=== PATIENT | female | born 1940 | race Caucasian/White ===

== ENCOUNTER 2016-11-06 12:24 | Inpatient (IN) | payer MEDICARE, OTHER ==
[~2016-11-06] VITALS: Ht 157.5 cm; Wt 39.6 kg
[2016-11-06] MEDS ORDERED: ONDANSETRON PF 4 MG/2 ML VIAL. IV PRN ×2 (12:45→14:30)
[2016-11-06] MEDS ORDERED: FENTANYL PF 100 MCG/2 ML VIAL. IV PRN (12:45)
[2016-11-06 12:55] LABS: BASO % 0 % (0-3); EOS % 0 % (0-3); HEMOGLOBIN 16.6 g/dL (12.0-15.5); LYMPH # 0.9 x10^3/uL (1.0-4.8); LYMPH % 7 % (24-48); MEAN CORPUSCULAR HEMOGLOBIN 26 pg (25-35); MEAN CORPUSCULAR HGB CONC 33 g/dL (31-37); MEAN CORPUSCULAR VOLUME 79 fL (79-100); MONO % 4 % (0-9); NEUT % 89 % (31-73); PLATELET COUNT 282 x10^3/uL (140-400); RED BLOOD COUNT 6.37 x10^6/uL (3.50-5.40); RED CELL DISTRIBUTION WIDTH 18.5 % (11.5-14.5); WHITE BLOOD COUNT 13.4 x10^3/uL (4.0-11.0)
[2016-11-06 13:05] LABS: CALCIUM 9.6 mg/dL (8.5-10.1); GFR 53.8
[2016-11-06 13:06] LABS: POTASSIUM 3.3 mmol/L (3.5-5.1)
[2016-11-06 13:11] LABS: TOTAL BILIRUBIN 0.9 mg/dL (0.2-1.0)
--- NOTE | 2016-11-06 13:26 | EKG ---
[facility] [address] [place] [address] Test Date: 2016-11-06 Test Time: 13:17:01 Pat Name: YING MARTINEZ Department: Room: Gender: F Dairy Husbandman: : 1940 Requested By: EDIN SAL Order Number: [id number] Reading MD: Yousuf Canada Measurements Intervals [place] Rate: 120 P: 56 FL: 140 QRS: -64 QRSD: 84 T: 72 QT: 354 QTc: 506 Interpretive Statements SINUS TACHYCARDIA ATRIAL PREMATURE COMPLEX(ES) ABNORMAL LEFT AXIS DEVIATION LOW LIMB LEAD VOLTAGE ABNORMAL ECG LEFT ATRIAL ENLARGEMENT Electronically Signed On 11-07-2016 9:47:39 CDT by Yousuf Canada
[2016-11-06 13:28] LABS: DIRECT BILIRUBIN 0.2 mg/dL (0.0-0.2)
[2016-11-06 13:30] LABS: BILIRUBIN,URINE NEGATIVE (NEG); GLUCOSE,URINE NEGATIVE (NEG); NITRITE,URINE NEGATIVE (NEG); PH,URINE 7.5; PROTEIN,URINE 30 mg/dL (NEG-TRACE)
--- NOTE | 2016-11-06 13:41 | PHYS DOC ---
Past Medical History Past Medical History: COPD, Depression, Hypertension Past Surgical History: Hip Replacement, Knee Replacement Additional Past Surgical Histo: abd surgery, carotid stent Alcohol Use: None Drug Use: None Adult General Chief Complaint Chief Complaint: NAUSEA/VOMITING/DIARRHA HPI HPI 76-year-old female presenting to the emergency department today with nausea vomiting and watery stools for the past 2-3 days. Family also states that she has had polyuria and foul-smelling urine. Yesterday she sustained a mechanical fall and denies hitting her head. She denies loss of consciousness. She has chronic low back pain as well. Review of systems is negative for chest pain shortness of breath. She has had a cough over the past few days with new sputum. She denies fevers or chills. All other review of systems is negative unless otherwise noted in history of present illness. Review of Systems Review of Systems SEE ABOVE. Current Medications Current Medications Current Medications Medications (Trade) Dose Ordered Sig/True Start Time Stop Time Status Last Admin Dose Admin Fentanyl Citrate 25 mcg 25 mcg PRN Q30MIN PRN 11/06/16 12:45 11/06/16 13:35 25 MCG Ondansetron HCl (Zofran) 4 mg PRN Q30MIN PRN 11/06/16 12:45 11/06/16 13:35 4 MG Potassium Chloride (Klor-Con) 40 meq 1X ONCE 11/06/16 14:15 11/06/16 14:16 Sodium Chloride (Iv Sodium Chloride 0.9% 500ml Bag) 500 ml @ 500 mls/hr 1X ONCE 11/06/16 14:15 11/06/16 15:14 11/06/16 13:53 500 MLS/HR Allergies Allergies Allergies Coded Allergies Type Severity Reaction Last Updated Verified No Known Drug Allergies 11/06/16 No Physical Exam Physical Exam Constitutional: Well developed, well nourished, no acute distress, non-toxic appearance. HENT: Normocephalic, atraumatic, bilateral external ears normal, oropharynx moist, no oral exudates, nose normal. [] Eyes: PERRLA, EOMI, conjunctiva normal, no discharge. [] Neck: Normal range of motion, no tenderness, supple, no stridor. Cardiovascular: Tachycardic with a regular rhythm., no murmur [] Lungs & Thorax: Bilateral breath sounds clear to auscultation Abdomen: Bowel sounds normal, soft, no tenderness, no masses, no pulsatile masses. [] Skin: Warm, dry, no erythema, no rash. [] Back: No tenderness, no CVA tenderness. Extremities: No tenderness, no cyanosis, no clubbing, ROM intact, no edema. [] Neurologic: Alert and oriented X 3, normal motor function, normal sensory function, no focal deficits noted. Psychologic: Affect normal, judgement normal, mood normal. [] Current Patient Data Vital Signs Vital Signs Date Time Temp Pulse Resp B/P Pulse Ox O2 Delivery O2 Flow Rate FiO2 11/06/16 13:35 122 18 138/78 95 Room Air 11/06/16 12:24 97.6 97.6 Lab Values Laboratory Tests Test 11/06/16 12:40 11/06/16 13:02 White Blood Count 13.4x10^3/uL (4.0-11.0) H Red Blood Count 6.37x10^6/uL (3.50-5.40) H Hemoglobin 16.6g/dL (12.0-15.5) H Hematocrit 50.0% (36.0-47.0) H Mean Corpuscular Volume 79fL (79-100) Mean Corpuscular Hemoglobin 26pg (25-35) Mean Corpuscular Hemoglobin Concent 33g/dL (31-37) Red Cell Distribution Width 18.5% (11.5-14.5) H Platelet Count 282x10^3/uL (140-400) Neutrophils (%) (Auto) 89% (31-73) H Lymphocytes (%) (Auto) 7% (24-48) L Monocytes (%) (Auto) 4% (0-9) Eosinophils (%) (Auto) 0% (0-3) Basophils (%) (Auto) 0% (0-3) Neutrophils # (Auto) 11.8x10^3uL (1.8-7.7) H Lymphocytes # (Auto) 0.9x10^3/uL (1.0-4.8) L Monocytes # (Auto) 0.6x10^3/uL (0.0-1.1) Eosinophils # (Auto) 0.0x10^3/uL (0.0-0.7) Basophils # (Auto) 0.0x10^3/uL (0.0-0.2) Platelet Estimate Pending Sodium Level 136mmol/L (136-145) Potassium Level 3.3mmol/L (3.5-5.1) L Chloride Level 95mmol/L (98-107) L Carbon Dioxide Level 29mmol/L (21-32) Anion Gap 12 (6-14) Blood Urea Nitrogen 20mg/dL (7-20) Creatinine 1.0mg/dL (0.6-1.0) Estimated GFR (Cockcroft-Gault) 53.8 Glucose Level 145mg/dL (70-99) H Lactic Acid Level 1.8mmol/L (0.4-2.0) Calcium Level 9.6mg/dL (8.5-10.1) Total Bilirubin 0.9mg/dL (0.2-1.0) Direct Bilirubin 0.2mg/dL (0.0-0.2) Aspartate Amino Transferase (AST) 27U/L (15-37) Alanine Aminotransferase (ALT) 24U/L (14-59) Alkaline Phosphatase 113U/L (46-116) Troponin I Quantitative < 0.017ng/mL (0.000-0.055) Total Protein 8.0g/dL (6.4-8.2) Albumin 4.0g/dL (3.4-5.0) Lipase 274U/L (73-393) Urine Collection Type U cath Urine Color Yellow Urine Clarity Clear Urine pH 7.5 Urine Specific [place] 1.020 Urine Protein 30mg/dL (NEG-TRACE) Urine Glucose (UA) Negativemg/dL (NEG) Urine Ketones (Stick) >=80mg/dL (NEG) Urine Blood Moderate (NEG) Urine Nitrite Negative (NEG) Urine Bilirubin Negative (NEG) Urine Urobilinogen Dipstick 1.0mg/dL (0.2 mg/dL) Urine Leukocyte Esterase Negative (NEG) Urine RBC 11-20/HPF (0-2) Urine WBC 1-4/HPF (0-4) Urine Squamous Epithelial Cells Few/LPF Urine Bacteria Moderate/HPF (0-FEW) Urine Hyaline Casts Occasional/HPF Urine Mucus Slight/LPF Laboratory Tests 11/06/16 12:40 Laboratory Tests 4/3/17 12:40 EKG EKG EKG shows sinus rhythm with a tachycardic rate. [place] is normal. Mild prolongation of the QT. ST segments show ST depression in lead V3 V4 and V5. No reciprocal ST elevation is present. Patient denies chest pain or shortness of breath. Her only pain currently is chronic lower back pain near the sacrum. [] Radiology/Procedures Radiology/Procedures [] Course & Med Decision Making Course & Med Decision Making Pertinent Labs and Imaging studies reviewed. (See chart for details) [] 76-year-old female presenting to the emergency department today with nausea vomiting and cough and chronic low back pain. Vital signs showed patient to be tachycardic. EKG shows it to be a sinus tachycardia. EKG shows ST depression in lead V3 V4 and V5. These ST depressions are new when compared to previous on October 06, 2012 which is the most recent EKG available to me at this time. Blood work obtained which shows low potassium. Negative troponin. Elevated white blood cell count. Urinalysis sent. The patient was given IV fluids. IV antibiotics ordered in the emergency department because the patient has dysuria and a cough with tachycardia likely secondary to hypovolemia. She was then admitted to our hospital for further evaluation workup and care. Cardiology consult placed for ST changes. Dragon Disclaimer Dragon Disclaimer This electronic medical record was generated, in whole or in part, using a voice recognition dictation system. Departure Departure Impression: Primary Impression: Sinus tachycardia Additional Impressions: Dysuria Cough ST segment changes on electrocardiography Disposition: ADMITTED INPATIENT Admitting Physician: Fernanda Cope Condition: STABLE Referrals: ALESSIA LIMA (PCP) Problem Qualifiers EDIN SAL MD Nov 06, 2016 13:41
[2016-11-06 13:58] LABS: BACTERIA,URINE MODERATE /HPF (0-FEW); SQUAMOUS EPITHELIAL CELL,UR FEW /LPF
[2016-11-06] MEDS ORDERED: IV NORMAL SALINE 500ML BAG 500 ML IV ONE (14:15)
[2016-11-06] MEDS ORDERED: POTASSIUM CHLORIDE 20 MEQ TABLET.ER. PO ONE ×2 (14:15→18:15)
[2016-11-06 14:21] LABS: ALBUMIN 3.7 g/dL (3.4-5.0); CALCIUM 9.2 mg/dL (8.5-10.1); CREATININE 0.9 mg/dL (0.6-1.0); DIRECT BILIRUBIN 0.2 mg/dL (0.0-0.2); GFR 60.7; TOTAL BILIRUBIN 0.8 mg/dL (0.2-1.0); TOTAL PROTEIN 6.8 g/dL (6.4-8.2)
--- NOTE | 2016-11-06 14:22 | RAD ---
Exam: AP portable chest. History: Cough. Comparison: 10/05/2012. Findings: The heart and mediastinal structures are within normal limits for size. Lungs are without infiltrate. No pneumothorax or pleural effusion is appreciated. Aortic atherosclerosis is present. Cervicothoracic junction demonstrates spinal fusion hardware. Upper lumbar spine demonstrates spinal fusion hardware. Vascular stent is seen in the upper mediastinum. Impression: 1. No acute cardiopulmonary process.
[2016-11-06 14:23] LABS: POTASSIUM 2.9 mmol/L (3.5-5.1)
[2016-11-06] MEDS ORDERED: KETOROLAC 15 MG/ML VIAL. IV PRN (14:30)
[2016-11-06] MEDS ORDERED: CALCIUM CARBONATE 500 MG TAB.CHEW PO PRN (14:30)
[2016-11-06] MEDS ORDERED: IV NORMAL SALINE 1000ML BAG 1,000 ML IV SCH (14:30)
[2016-11-06] MEDS ORDERED: MAGNESIUM HYDROXIDE 2,400 MG/30 ML ORAL.SUSP. PO PRN (14:30)
[2016-11-06] MEDS ORDERED: OXYCODONE IR 5 MG TABLET. PO PRN (14:30)
[2016-11-06] MEDS ORDERED: MAG HYDROX/ALUMINUM HYD/SIMETH 30 ML ORAL.SUSP PO PRN (14:30)
[2016-11-06] MEDS ORDERED: PROCHLORPERAZINE 25 MG SUPP.RECT. PR PRN (14:30)
[2016-11-06] MEDS ORDERED: BISACODYL 10 MG SUPP.RECT. PR PRN (14:30)
[2016-11-06] MEDS ORDERED: NICOTINE 21MG PATCH. TD PRN (14:30)
[2016-11-06] MEDS ORDERED: ACETAMINOPHEN 500 MG TABLET PO PRN (14:30)
[2016-11-06] MEDS ORDERED: CEFTRIAXONE 1GM IVPB FOR OMNI 50 ML IV ONE (14:45)
--- NOTE | 2016-11-06 14:47 | PDOC1 ---
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 Pt has been having 3 day hx of nausea and emesis, no diarrhea, dec PO. NO reported fevers. Did fall at home,. no reported head trauma, unwitnessed but was found by dtr to be seated on the floor, Pt denies headache, no obvious bumps or bruising on head or elsewhere, Labs are remarkable for hemoconcentration with hgb 16, leukocytosis 13, ketonuria but no UTI. CXR done but still pending, dtr does relay some slimy mucousy cough? Pt interestingly has an AbN EKG, but denies any CP, HR was 130s at ER, shot up to 150s? There were reports of polyuria, dysuria, UA is still pending. BS only 145s at ER , not known diabetic HAs not been a big eater per dtr PAst medical; HTN, COPD, Depression, she does cont to smoke, stopped or slowed down 5 weeks ago ALso hx BArretts', hx of "laser sx" at [facility], Bezoars, used to follow with a "Dr. Burger" down at the [facility]. Also gets constant reflux Allergies she claims to dust only Past surgical hx: hysterrectomy, appy, tonsillectomy, hip sx x 2, knee sx Past Medical History GI: GERD Past Surgical History Past Surgical History: Other (see above) Family History Family History: Other (chf in mother) Social History Smoke: <1 pack per day ALCOHOL: none Drugs: None Current Problem List Problem List Problems Medical Problems: (1) Cough Status: Acute (2) Dehydration Status: Acute (3) Dysuria Status: Acute (4) Hypovolemia Status: Acute (5) Sinus tachycardia Status: Acute (6) ST segment changes on electrocardiography Status: Acute Problems: Current Medications Current Medications Current Medications Ondansetron HCl (Zofran) 4 mg PRN Q30MIN PRN IV NAUSEA/VOMITING Last administered on 11/06/16t 13:35; Start 4/3/17 at 12:45 Fentanyl Citrate 25 mcg 25 mcg PRN Q30MIN PRN IV PAIN Last administered on 13:35; Start 11/06/16 at 12:45 Sodium Chloride (Iv Sodium Chloride 0.9% 500ml Bag) 500 ml @ 500 mls/hr 1X ONCE IV Last administered on 11/06/16 13:53; Start 11/06/16 at 14:15; Stop at 15:14 Potassium Chloride 40 meq 40 meq 1X ONCE PO ; Start 11/06/16 at 14:15; Stop 11/06 at 14:16; Status DC Ceftriaxone Sodium (Rocephin 1gm Ivpb For Omni) 50 ml @ 100 mls/hr 1X ONCE IV ; Start 11/06/16 at 14:45; Stop 11/06/16 at 15:14 Allergies Allergies: Coded Allergies: No Known Drug Allergies (Unverified , 11/06/16) ROS General: YES: Other (dec appetite, maybe some weight loss) PSYCHOLOGICAL ROS: No: Anxiety, Behavioral Disorder, Concentration difficultie , Decreased libido, Depression, Disorientation, Hallucinations, Hostility, Irritablity, Memory difficulties, Mood Swings, Obsessive thoughts, Other, Physical abuse, Sexual abuse, Sleep disturbances, Suicidal ideation Eyes: No Blurry vision, No Decreased vision, No Double vision, No Dry eyes, No Excessive tearing, No Eye Pain, No Itchy Eyes, No Loss of vision, No Other, No Photophobia, No Scotomata, No Uses contacts, No Uses glasses HEENT: No: Epistaxis, Heacaches, Hearing change, Nasal congestion, Nasal discharge, Oral lesions, Other, Sinus pain, Sneezing, Snoring, Sore Throat, Tinnitus, Vertigo, Visual Changes, Vocal changes ALLERGY AND IMMUNOLOGY: No: Hives, Insect Bite Sensitivity, Itchy/Watery Eyes, Nasal Congestion, Other, Post Nasal Drip, Seasonal Allergies Hematological and Lymphatic: No: Bleeding Problems, Blood Clots, Blood Transfusions, Brusing, Night Sweats, Other, Pallor, Swollen Lymph Nodes ENDOCRINE: No: Breast Changes, Galactorrhea, Hair Pattern Changes, Hot Flashes , Malaise/lethargy, Mood Swings, Other, Palpitations, Polydipsia/polyuria, Skin Changes, Temperature Intolerance, Unexpected Weight Changes Breast: No New/Changing Breast Lumps, No Nipple changes, No Nipple discharge, No Other Respiratory: YES: Cough Cardiovascular: No Chest Pain, No Edema, No Lt Headedness, No Orthopnea, No Other, No Palpitations, No Paroxysmal Noc. Dyspnea Gastrointestinal: Yes Nausea, Yes Vomiting Genitourinary: No , No , No , No , No , No , No , No Discharge, No Dysuria, No Flank Pain, No Frequency, No Hematuria, No Incontinence, No Other, No Pain, No Retention, No Urgency Musculoskeletal: No Gait Disturbance, No Joint Pain, No Joint Stiffness, No Joint Swelling, No Muscle Pain, No Muscular Weakness, No Other, No Pain In:, No Swelling In: Neurological: No Behavorial Changes, No Bowel/Bladder ControlChng, No Confusion , No Dizziness, No Gait Disturbance, No Headaches, No Impaired Coord/balance, No Memory Loss, No Numbness/Tingling, No Other, No Seizures, No Speech Problems , No Tremors, No Visual Changes, No Weakness Skin: Yes Dry Skin Physical Exam General: Alert, Oriented X3, Cooperative, No acute distress, Other (dry skin, skin and bones) HEENT: PERRLA Lungs: Clear to auscultation, Normal air movement Heart: S1S2, RRR, no thrills, no rubs, no gallops Cardiovascular: S1, S2 Breasts: Normal Abdomen: Soft, Other (scaphoid) Rectal Exam: not examined Extremities: No clubbing, No cyanosis, No edema, Normal pulses, No tenderness/ swelling Skin: No rashes, No breakdown, No significant lesion Neuro: Normal gait, Normal speech, Strength at 5/5 X4 ext, Normal tone, Sensation intact, Cranial nerves 3-12 NL, Reflexes 2+ Psych/Mental Status: Mental status NL, Mood NL Vitals Vitals Vital Signs Date Time Temp Pulse Resp B/P Pulse Ox O2 Delivery O2 Flow Rate FiO2 11/06/16 13:35 122 18 138/78 95 Room Air 11/06/16 12:24 97.6 97.6 Labs Labs Laboratory Tests Test 11/06/16 12:40 11/06/16 13:02 11/06/16 13:30 White Blood Count 13.4x10^3/uL (4.0-11.0) Red Blood Count 6.37x10^6/uL (3.50-5.40) Hemoglobin 16.6g/dL (12.0-15.5) Hematocrit 50.0% (36.0-47.0) Mean Corpuscular Volume 79fL (79-100) Mean Corpuscular Hemoglobin 26pg (25-35) Mean Corpuscular Hemoglobin Concent 33g/dL (31-37) Red Cell Distribution Width 18.5% (11.5-14.5) Platelet Count 282x10^3/uL (140-400) Neutrophils (%) (Auto) 89% (31-73) Lymphocytes (%) (Auto) 7% (24-48) Monocytes (%) (Auto) 4% (0-9) Eosinophils (%) (Auto) 0% (0-3) Basophils (%) (Auto) 0% (0-3) Neutrophils # (Auto) 11.8x10^3uL (1.8-7.7) Lymphocytes # (Auto) 0.9x10^3/uL (1.0-4.8) Monocytes # (Auto) 0.6x10^3/uL (0.0-1.1) Eosinophils # (Auto) 0.0x10^3/uL (0.0-0.7) Basophils # (Auto) 0.0x10^3/uL (0.0-0.2) Sodium Level 136mmol/L (136-145) 139mmol/L (136-145) Potassium Level 3.3mmol/L (3.5-5.1) 2.9mmol/L (3.5-5.1) Chloride Level 95mmol/L (98-107) 97mmol/L (98-107) Carbon Dioxide Level 29mmol/L (21-32) 29mmol/L (21-32) Anion Gap 12 (6-14) 13 (6-14) Blood Urea Nitrogen 20mg/dL (7-20) 20mg/dL (7-20) Creatinine 1.0mg/dL (0.6-1.0) 0.9mg/dL (0.6-1.0) Estimated GFR (Cockcroft-Gault) 53.8 60.7 Glucose Level 145mg/dL (70-99) 140mg/dL (70-99) Lactic Acid Level 1.8mmol/L (0.4-2.0) Calcium Level 9.6mg/dL (8.5-10.1) 9.2mg/dL (8.5-10.1) Total Bilirubin 0.9mg/dL (0.2-1.0) 0.8mg/dL (0.2-1.0) Direct Bilirubin 0.2mg/dL (0.0-0.2) 0.2mg/dL (0.0-0.2) Aspartate Amino Transf (AST/SGOT) 27U/L (15-37) 20U/L (15-37) Alanine Aminotransferase (ALT/SGPT) 24U/L (14-59) 23U/L (14-59) Alkaline Phosphatase 113U/L (46-116) 102U/L (46-116) Troponin I Quantitative < 0.017ng/mL (0.000-0.055) Total Protein 8.0g/dL (6.4-8.2) 6.8g/dL (6.4-8.2) Albumin 4.0g/dL (3.4-5.0) 3.7g/dL (3.4-5.0) Lipase 274U/L (73-393) 257U/L (73-393) Urine Collection Type U cath Urine Color Yellow Urine Clarity Clear Urine pH 7.5 Urine Specific [place] 1.020 Urine Protein 30mg/dL (NEG-TRACE) Urine Glucose (UA) Negativemg/dL (NEG) Urine Ketones (Stick) >=80mg/dL (NEG) Urine Blood Moderate (NEG) Urine Nitrite Negative (NEG) Urine Bilirubin Negative (NEG) Urine Urobilinogen Dipstick 1.0mg/dL (0.2 mg/dL) Urine Leukocyte Esterase Negative (NEG) Urine RBC 11-20/HPF (0-2) Urine WBC 1-4/HPF (0-4) Urine Squamous Epithelial Cells Few/LPF Urine Bacteria Moderate/HPF (0-FEW) Urine Hyaline Casts Occasional/HPF Urine Mucus Slight/LPF Laboratory Tests Test 11/06/16 12:40 11/06/16 13:02 11/06/16 13:30 White Blood Count 13.4x10^3/uL (4.0-11.0) Red Blood Count 6.37x10^6/uL (3.50-5.40) Hemoglobin 16.6g/dL (12.0-15.5) Hematocrit 50.0% (36.0-47.0) Mean Corpuscular Volume 79fL (79-100) Mean Corpuscular Hemoglobin 26pg (25-35) Mean Corpuscular Hemoglobin Concent 33g/dL (31-37) Red Cell Distribution Width 18.5% (11.5-14.5) Platelet Count 282x10^3/uL (140-400) Neutrophils (%) (Auto) 89% (31-73) Lymphocytes (%) (Auto) 7% (24-48) Monocytes (%) (Auto) 4% (0-9) Eosinophils (%) (Auto) 0% (0-3) Basophils (%) (Auto) 0% (0-3) Neutrophils # (Auto) 11.8x10^3uL (1.8-7.7) Lymphocytes # (Auto) 0.9x10^3/uL (1.0-4.8) Monocytes # (Auto) 0.6x10^3/uL (0.0-1.1) Eosinophils # (Auto) 0.0x10^3/uL (0.0-0.7) Basophils # (Auto) 0.0x10^3/uL (0.0-0.2) Sodium Level 136mmol/L (136-145) 139mmol/L (136-145) Potassium Level 3.3mmol/L (3.5-5.1) 2.9mmol/L (3.5-5.1) Chloride Level 95mmol/L (98-107) 97mmol/L (98-107) Carbon Dioxide Level 29mmol/L (21-32) 29mmol/L (21-32) Anion Gap 12 (6-14) 13 (6-14) Blood Urea Nitrogen 20mg/dL (7-20) 20mg/dL (7-20) Creatinine 1.0mg/dL (0.6-1.0) 0.9mg/dL (0.6-1.0) Estimated GFR (Cockcroft-Gault) 53.8 60.7 Glucose Level 145mg/dL (70-99) 140mg/dL (70-99) Lactic Acid Level 1.8mmol/L (0.4-2.0) Calcium Level 9.6mg/dL (8.5-10.1) 9.2mg/dL (8.5-10.1) Total Bilirubin 0.9mg/dL (0.2-1.0) 0.8mg/dL (0.2-1.0) Direct Bilirubin 0.2mg/dL (0.0-0.2) 0.2mg/dL (0.0-0.2) Aspartate Amino Transf (AST/SGOT) 27U/L (15-37) 20U/L (15-37) Alanine Aminotransferase (ALT/SGPT) 24U/L (14-59) 23U/L (14-59) Alkaline Phosphatase 113U/L (46-116) 102U/L (46-116) Troponin I Quantitative < 0.017ng/mL (0.000-0.055) Total Protein 8.0g/dL (6.4-8.2) 6.8g/dL (6.4-8.2) Albumin 4.0g/dL (3.4-5.0) 3.7g/dL (3.4-5.0) Lipase 274U/L (73-393) 257U/L (73-393) Urine Collection Type U cath Urine Color Yellow Urine Clarity Clear Urine pH 7.5 Urine Specific [place] 1.020 Urine Protein 30mg/dL (NEG-TRACE) Urine Glucose (UA) Negativemg/dL (NEG) Urine Ketones (Stick) >=80mg/dL (NEG) Urine Blood Moderate (NEG) Urine Nitrite Negative (NEG) Urine Bilirubin Negative (NEG) Urine Urobilinogen Dipstick 1.0mg/dL (0.2 mg/dL) Urine Leukocyte Esterase Negative (NEG) Urine RBC 11-20/HPF (0-2) Urine WBC 1-4/HPF (0-4) Urine Squamous Epithelial Cells Few/LPF Urine Bacteria Moderate/HPF (0-FEW) Urine Hyaline Casts Occasional/HPF Urine Mucus Slight/LPF VTE Prophylaxis Ordered VTE Prophylaxis Devices: Yes VTE Pharmacological Prophylaxi: Yes Assessment/Plan Assessment/Plan 1. Nausea, emesis, dehydration 2. Hemoconcentration sec to dehydration 3. Leukocytosis, likely reactive 4. smoker, hx COPD, HTN, depression per documentation 5. Hypokalemia 6. MOd to severe PCM 7. Hx rolle's, bezoars, chronic GERD 8. DIANA, vasomotor sec to above PLAn: LAbs and hx support dx dehydration (hemoconcentration, ketonuria, nausea, emesis ) AGGRESSIvE IVF, 125 cc hr for now Might be able to dec rate after 24-48 hrs Admit 2MN, CVC floor given concerning EKG, consult cards Await CXR results Awaiting home meds Nutrition consult for seveer PCM and dec PO DVT prophy 30 sQ qdaily only PPI daily PT/OT Nicotine patch prn Recheck labs freida Will start antibiotic when CXR shows infectious process dw ER MD, pt and dtr GEORGETTE POON MD Nov 06, 2016 14:47
[2016-11-06] MEDS: PROCHLORPERAZINE 10 MG/2 ML VIAL. IV PRN (16:11)
[2016-11-06 16:17] LABS: PLT ESTIMATE ADEQUATE (ADEQUATE); POLYCHROMASIA SLIGHT
[2016-11-06 16:18] LABS: ANISOCYTOSIS SLIGHT; OVALOCYTES OCC
--- NOTE | 2016-11-06 16:30 | ACF ---
Admission Forms Criteria CARDIOLOGY GRG Clinical Indications for Admission to Inpatient Care ( Place 'X' for any and all applicable criteria): Hospital admission is needed for appropriate care of the patient because of ANY ONE of the following (1): [ ] I. Hemodynamic instability as indicated by ALL of the following (1)(2)(3) (4)(5) [ ]a) Vital signs or other findings not as expected for chronic patient condition or baseline [ ]b) Instability indicated by ANY ONE of the following: [ ]i) Hypotension [ ]ii) Symptomatic Tachycardia unresponsive to treatment ( e.g., analgesia, fluids, sedation as indicated) [ ]iii) Inadequate perfusion indicated by ANY ONE of the following: [ ] 1) Lactic acidosis (> 2 mmol/L) [ ] 2) New abnormal capillary refill (> 3 seconds) [ ] 3) Reduced urine output [ ] 4) New altered mental status [ ]iv) Orthostatic vital sign changes unresponsive to treatment (e.g., fluids) [ ]v) IV inotropic or vasopressor medication required to maintain adequate blood pressure or perfusion [ ] II. Severe heart failure as indicated by ANY ONE of the following(17)(18) [ ]a) Respiratory distress [ ]b) Hypotension [ ]c) Anasarca (refractory to outpatient therapy) [ ]d) Cardiac arrhythmias of immediate concern [ ]e) Myocardial ischemia [ ] III. Cardiac arrhythmias or findings of immediate concern indicated by ANY ONE of the following (19)(20): [ ] a) Heart rhythms that are inherently dangerous or unstable indicated by ANY ONE of the following (21)(22)(23): [ ] i) Resuscitated ventricular fibrillation or cardiac arrest [ ] ii) Ventricular escape rhythm [ ] iii) Sustained ventricular tachycardia (30 seconds or more of ventricular rhythm at greater than 100 beats per minute) [ ] iv) Nonsustained ventricular tachycardia and ANY ONE of the following: [ ] 1) Suspected cardiac ischemia as cause or consequence of ventricular tachycardia [ ] 2) In setting of acute myocarditis [ ] b) Unstable cardiac conduction defects indicated by ANY ONE of the following(23)(24)(25) [ ] i) Type II second-degree atrioventricular block [ ]ii) Third-degree atrioventricular block [ ]iii) New-onset left bundle branch block with suspected myocardial ischemia [ ]c) Any heart rhythm and ANY ONE of the following (21)(22)(26)(27) (28) [ ] i) Continuous long-term ECG monitoring needed (e.g., initiation of drug requiring monitoring for more than 24 hours) [ ] ii) Patient has automatic implanted cardioverter defibrillator that is repeatedly firing, malfunctioning, or in need of immediate adjustment of settings beyond the scope of ambulatory or observation care [ ]d) Heart rhythms of concern due to ANY ONE of the following: [ ] i) Hypotension [ ] ii) Respiratory distress [ ] iii) Association with other significant symptoms (e.g., bradycardia with syncope or ongoing dizziness, supraventricular tachycardia with chest pain (14)(15)(17) [ ] IV. Monitoring for cardiac contusion beyond the scope of observation care needed [A](30)(31)(32) [ ] V. Surgical or device complication (e.g., valve replacement complication , pacemaker dysfunction) (35)(41)(44)(45)(46) [ ] . Inpatient palliative care needed. [B](49) Also use Inpatient Palliative Care Criteria [ ] VII. Nonbacterial thrombotic (marantic) endocarditis (36)(43)(47)(48) [X] VIII. Cardiology condition, symptom, or finding for which emergency and observation care has failed or are not considered appropriate. [ ] IX. Acute valvular disease requiring inpatient as indicated by ANY ONE of the following (41) [ ]a) Acute valvular regurgitation (42) [ ]b) Noninfectious valvulitis (43) [ ]c) Obstructive valve thrombosis [ ]d) Paravalvular leak [ ]e) Other significant valvular disorder remaining after emergency or observation level of care (as appropriate) [ ]X. Pericardial disease requiring inpatient treatment as indicated by ANY ONE of the following (33)(34)(35)(36)(37) [ ]a) Suspected tamponade (38)(39)(40) [ ]b) Hemopericardium [ ]c) Other significant pericardial disorder remaining after emergency or observation level of care (as appropriate) [ ] XI. Cardiac ischemia beyond scope of emergency and observation care. [ ] XII. Hypertension requiring inpatient treatment as indicated by ANY ONE of the following (6)(7)(8) [ ]a) SBP greater than 220 mm Hg or DBP greater than 120 mmHg despite treatment [ ]b) SBP greater than 140 mm Hg or DBP greater than 100 mm Hg with evidence of acute end organ damage as indicated by ANY ONE of the following [ ] i) Encephalopathy [ ] ii) Acute renal failure as indicated by new onset of ANY ONE of the following (9)(10)(11)(12)(13) [ ]1) 3-fold rise in serum creatinine from baseline [ ]2) Serum creatinine greater than 4 mg/dL ( 354 micromoles/L) with acute rise greater than 0.5 mg/dL (44.2 micromoles/L) [ ]3) Reduction of more than 75% in estimated glomerular filtration rate from baseline [ ]4) Estimated glomerular filtration rate less than 35 mL/min/1.73m2 (0.59 mL/sec/1.73m2) in child up to 18 years of age [ ]5) Cessation of urine output indicated by ALL of the following [ ]A. Adequate volume status [ ]B. Inadequate urine output as indicated by ANY ONE of the following [ ]a. Urine output less than 0.3 mL/kg/hr for 24 hours [ ]b. Anuria (urine output less than 0.1 mL/kg/hr) for 12 hours [ ] iii) Aortic dissection [ ] iv) Myocardial Ischemia [ ] v) Left ventricular heart failure [ ]vi) Retinal Hemorrhage [ ]vii) Other significant finding [ ]c) Hypertension in child requiring inpatient treatment as indicated by ALL of the following(14)(15)(16) [ ] i) Outpatient treatment not effective, not available, or not appropriate [ ]ii) SBP or DBP greater than 95th percentile for age [ ]iii) Evidence of acute end organ damage as indicated by ANY ONE of the following [ ]1) Altered mental status [ ]2) Acute renal failure as indicated by new onset of ANY ONE of the following(9)(10)(11)(12)(13) [ ]A. 3-fold rise in serum creatinine from baseline [ ]B. Serum creatinine greater than 4 mg/dL (354 micromoles/L) with acute rise greater than 0.5 mg/dL (44.2 micromoles/L) [ ]C. Reduction of more than 75% in estimated glomerular filtration rate from baseline [ ]D. Estimated glomerular filtration rate less than 35 mL/min/1.73m2 (0.59 mL/sec/1.73m2) in child up to 18 years of age [ ]E. Cessation of urine output indicated by ALL of the following [ ]a. Adequate volume status [ ]b. Inadequate urine output as indicated by ANY ONE of the following [ ]i) Urine output less than 0.3 mL/kg/hr for 24 hours [ ]ii) Anuria ( urine output less than 0.1 mL/kg/hr) for 12 hours [ ]3) Severe headache [ ]4) Visual disturbance [ ]5) Retinal hemorrhage [ ]6) Other significant finding [ ]XIII. Complications of transplanted heart indicated by ANY ONE of the following(61): [ ]a) Acute graft rejection requiring inpatient management (eg, intravenous immunosuppression)(62)(63) [ ]b) Acute graft heart failure indicated by ANY ONE of the following(64): [ ]i) Hemodynamic instability [ ]ii) Cardiac arrhythmias of immediate concern [ ]iii) Pulmonary edema that is very severe (eg, mechanical ventilation needed, imminent or likely, need for 100% oxygen to keep oxygen saturation above 90%) [ ]iv) Pulmonary edema that is persistent as indicated by ALL of the following: [ ]1) New need for oxygen therapy to keep oxygen saturation above 90% (or increased FiO2 need from baseline) [ ]2) Has not improved sufficiently with emergency department or observation care IV diuretics or other heart failure treatments[E] [ ]v) Altered mental status that is severe or persistent [ ]vi) Increased creatinine (new on laboratory test) with reduction of more than 50% in estimated glomerular filtration rate from baseline [ ]vii) Progressively (ongoing) rising creatinine (known from past laboratory test) with reduction of more than 25% in estimated glomerular filtration rate from baseline [ ]viii) Acute renal failure [ ]ix) Acute peripheral ischemia (eg, examination shows pulseless, cool, mottled, or cyanotic extremity) [ ]x) Pulmonary artery catheter monitoring needed [ ]xi) Other sign or symptom of heart failure requiring inpatient treatment (ie, too severe or not responsive to outpatient and observation care treatment) [ ]c) Infection requiring inpatient management (eg, Hemodynamic instability, need for intravenous antimicrobial treatment)(66)(67)(68)(69)(70) [ ]d) Cardiac allograft vasculopathy requiring inpatient management ( eg evidence of cardiac ischemia)(71) [ ]e) Other complication of transplanted heart (eg, stroke, severe pulmonary hypertension, severe valvular dysfunction) requiring inpatient management(72) The original [facility] content created by [facility] has been revised. The portions of the content which have been revised are identified through the use of italic text or in bold, and [facility] has neither reviewed nor approved the modified material. All other unmodified content is copyright [facility]. Please see references footnoted in the original [facility] edition 2016 Admission Criteria Met?: Yes YUMIKO BARRON Nov 06, 2016 16:30
[2016-11-06 19:30] VITALS: BP 181/118
[2016-11-06] MEDS ORDERED: LABETALOL 20 MG/4 ML DISP.SYRIN. IVP PRN (20:00)
[2016-11-06] MEDS ORDERED: CETI10TA22 PO (20:49)
[2016-11-06] MEDS ORDERED: OMEP10CA3 PO ×2 (20:49)
[2016-11-06] MEDS ORDERED: MORP15TA3 PO (20:49)
[2016-11-06] MEDS ORDERED: PARO40TA3 PO (20:49)
[2016-11-06] MEDS ORDERED: TRAZ100T12 PO (20:49)
[2016-11-06] MEDS ORDERED: CALC200T36 PO (20:49)
[2016-11-06] MEDS ORDERED: OXYB5TAB7 PO (20:49)
[2016-11-06] MEDS ORDERED: METO25TA4 PO (20:49)
[2016-11-06] MEDS ORDERED: POTA10CA PO (20:49)
[2016-11-06] MEDS ORDERED: HYDR-2666 PO (20:49)
[2016-11-06] MEDS ORDERED: AMLO10TA2 PO (20:49)
[2016-11-06] MEDS ORDERED: LATA2.5D3 EACHEYE (20:55)
[2016-11-06] MEDS ORDERED: CYCL1DRO EACHEYE (20:55)
[2016-11-06] MEDS ORDERED: ONDA4TAB7 PO (20:55)
[2016-11-06] MEDS ORDERED: VITA150T PO (20:55)
[2016-11-06] MEDS ORDERED: HYDROCODONE/APAP 5/325MG TABLET. PO PRN (21:00)
[2016-11-06] MEDS ORDERED: ONDANSETRON ODT 4 MG TAB.RAPDIS. PO PRN (21:15)
[2016-11-06] MEDS ORDERED: traZODone 50 MG TABLET. PO PRN (22:15)
[2016-11-06] MEDS: ENOXAPARIN 30 MG/0.3 ML SYRINGE. SQ SCH (22:22)
[2016-11-06] MEDS: OXYBUTYNIN CHLORIDE 5 MG TABLET PO SCH (22:25)
[2016-11-06] MEDS: MORPHINE ER 15 MG TABLET.ER PO SCH (22:25)
[2016-11-06] MEDS: DOCUSATE SODIUM 100 MG CAPSULE. PO SCH (22:25)
[2016-11-06] MEDS: LATANOPROST 0.005% OPHTH SOLUTION 2.5ML BOTTLE. OU SCH (22:26)
[2016-11-06] MEDS: CYCLOSPORINE 0.05% OPTH DROPERETTE. OU SCH (22:26)
[2016-11-06] MEDS: IV NORMAL SALINE 1000ML BAG 1,000 ML IV PRN (22:27)
[2016-11-06] MEDS: METOPROLOL TART IMMED RELEASE 25 MG TABLET. PO SCH (22:27)
[2016-11-06 23:25] VITALS: BP_SYST 152; BP_SYST 179; BP_DIAS 80; BP_DIAS 93
[2016-11-07] VITALS (7 sets, daily range): BP systolic 105–156; BP diastolic 58–91
[2016-11-07 05:08] LABS: BASO % 0 % (0-3); EOS % 0 % (0-3); HEMATOCRIT 40.5 % (36.0-47.0); HEMOGLOBIN 13.2 g/dL (12.0-15.5); LYMPH # 0.5 x10^3/uL (1.0-4.8); LYMPH % 4 % (24-48); MEAN CORPUSCULAR HEMOGLOBIN 26 pg (25-35); MEAN CORPUSCULAR HGB CONC 33 g/dL (31-37); MEAN CORPUSCULAR VOLUME 78 fL (79-100); MONO % 4 % (0-9); NEUT % 92 % (31-73); PLATELET COUNT 220 x10^3/uL (140-400); RED BLOOD COUNT 5.19 x10^6/uL (3.50-5.40); RED CELL DISTRIBUTION WIDTH 18.3 % (11.5-14.5); WHITE BLOOD COUNT 14.3 x10^3/uL (4.0-11.0)
[2016-11-07 05:31] LABS: CALCIUM 7.7 mg/dL (8.5-10.1); CREATININE 0.7 mg/dL (0.6-1.0); GFR 81.1; POTASSIUM 3.5 mmol/L (3.5-5.1)
[2016-11-07] MEDS: IV NORMAL SALINE 1000ML BAG 1,000 ML IV PRN (07:01)
[2016-11-07] MEDS: VITAMIN B COMPLEX TABLET. PO SCH (08:42)
[2016-11-07] MEDS: LATANOPROST 0.005% OPHTH SOLUTION 2.5ML BOTTLE. OU SCH (08:42)
[2016-11-07] MEDS: CYCLOSPORINE 0.05% OPTH DROPERETTE. OU SCH ×2 (08:42→20:59)
[2016-11-07] MEDS: PAROXETINE 20 MG TABLET. PO SCH (08:42)
[2016-11-07] MEDS: OXYBUTYNIN CHLORIDE 5 MG TABLET PO SCH ×2 (08:42→20:56)
[2016-11-07] MEDS: AMLODIPINE BESYLATE 10 MG TABLET. PO SCH (08:43)
[2016-11-07] MEDS: POTASSIUM CHLORIDE 20 MEQ TABLET.ER. PO SCH ×3 (08:43→17:44)
[2016-11-07] MEDS: PANTOPRAZOLE 40 MG TABLET.DR. PO SCH (08:43)
[2016-11-07] MEDS: DOCUSATE SODIUM 100 MG CAPSULE. PO SCH ×2 (08:44→20:56)
[2016-11-07] MEDS: METOPROLOL TART IMMED RELEASE 25 MG TABLET. PO SCH ×2 (08:44→20:56)
[2016-11-07] MEDS: MORPHINE SULFATE 2 MG/ML DISP.SYRIN. IV PRN (08:47)
--- NOTE | 2016-11-07 09:27 | PDOC2 ---
CLARISA PANTOJA [employer] 11/07/16 0927: CARDIAC CONSULT DATE OF CONSULT Date of Consult DATE: 11/07/16 TIME: 09:23 REASON FOR CONSULT Reason for Consult: ST changes REFERRING PHYSICIAN Referring Physician: Paz SOURCE Source: Chart review, Patient HISTORY OF PRESENT ILLNESS HISTORY OF PRESENT ILLNESS This is a pleasant 76 yo female admitted for complains of vomiting and diarrhea. She reports that she lives with her daughter and starting Sunday, she started having bouts of nausea which then progressed to vomiting. Initially she was feeling constipated then it became diarrhea. In addition she did fall yesterday but no injuries sustained and no lost of consciousness. She is somewhat a poor historian and family not available for further details. Accdg to ED she also was noted with fould smelling urine. Denies any symptoms of palpitations, chest pain, SOA. Denies any prior VTE, CAD. No fever or chills. She does blame it for possible stomach flu as she explained to me this has been going around. PAST MEDICAL HISTORY Cardiovascular: HTN, Other (carotid artery disease) Pulmonary: COPD CENTRAL NERVOUS SYSTEM: Other (No pertinent history) GI: GERD (barrets) Heme/Onc: No pertinent hx Hepatobiliary: No pertinent hx Psych: Anxiety, Depression Musculoskeletal: Osteoarthritis ENT: Allergic Rhinitis, Other (glaucoma, dry eye syndrome) Renal/: No pertinent hx Dermatology: No pertinent hx PAST SURGICAL HISTORY Past Surgical History: Appendectomy, Tonsillectomy, Hysterectomy, Other (knee and hip surgery; cervical fusion) FAMILY HISTORY Family History: Heart Disease (mother) SOCIAL HISTORY Smoke: 1 pack per day (>40 yrs) ALCOHOL: none Drugs: None Lives: with Family CURRENT MEDICATIONS CURRENT MEDICATIONS Current Medications Medications (Trade) Dose Ordered Sig/True Route PRN Reason Start Time Stop Time Status Last Admin Dose Admin Ondansetron HCl (Zofran) 4 mg PRN Q30MIN PRN IV NAUSEA/VOMITING 11/06/16 12:45 11/06/16 13:35 Fentanyl Citrate 25 mcg 25 mcg PRN Q30MIN PRN IV PAIN 11/06/16 12:45 11/06/16 13:35 Sodium Chloride (Iv Sodium Chloride 0.9% 500ml Bag) 500 ml @ 500 mls/hr 1X ONCE IV 11/06/16 14:15 11/06/16 15:14 DC 11/06/16 13:53 Potassium Chloride 40 meq 40 meq 1X ONCE PO 11/06/16 14:15 11/06/16 14:16 DC 11/06/16 18:31 Ceftriaxone Sodium (Rocephin 1gm Ivpb For Omni) 50 ml @ 100 mls/hr 1X ONCE IV 11/06/16 14:45 11/06/16 15:14 DC 11/06/16 14:45 Prochlorperazine Edisylate (Compazine) 10 mg PRN Q6HRS PRN IV NAUSEA/VOMITING 11/06/16 14:30 11/06/16 16:11 Docusate Sodium (Colace) 100 mg BID PO 11/06/16 21:00 11/07/16 08:44 Enoxaparin Sodium 30 mg 30 mg Q24H SQ 11/06/16 21:00 11/06/16 22:22 Sodium Chloride 1,000 ml @ 125 mls/hr CONT IV 11/06/16 14:30 11/06/16 16:01 DC 11/06/16 15:56 Sodium Chloride (Iv Sodium Chloride 0.9% 1000ml Bag) 1,000 ml @ 125 mls/hr CONT PRN IV . 11/06/16 16:01 11/07/16 07:01 Potassium Chloride (Klor-Con) 40 meq 1X ONCE PO 11/06/16 18:15 11/06/16 18:16 DC 11/06/16 18:31 Metoprolol Tartrate (Lopressor) 25 mg BID PO 11/06/16 21:00 11/07/16 08:44 Amlodipine Besylate (Norvasc) 10 mg DAILY PO 11/07/16 09:00 11/07/16 08:43 Cyclosporine (Restasis) 1 drop BID OU 11/06/16 21:00 11/07/16 08:42 Latanoprost (Xalatan) 1 drop QHS OU 11/06/16 22:00 11/07/16 08:42 Morphine Sulfate (Ms Contin) 15 mg BID PO 11/06/16 22:00 11/06/16 22:25 Oxybutynin Chloride (Ditropan) 5 mg BID PO 11/06/16 22:00 11/07/16 08:42 Pantoprazole Sodium (Protonix) 40 mg DAILYAC PO 11/07/16 07:30 11/07/16 08:43 Paroxetine HCl (Paxil) 40 mg DAILY PO 11/07/16 09:00 11/07/16 08:42 Potassium Chloride (Klor-Con) 20 meq TIDWMEALS PO 11/07/16 08:00 11/07/16 08:43 Vitamin B Complex (Isidro B) 1 tab DAILY PO 11/07/16 09:00 11/07/16 08:42 ALLERGIES ALLERGIES: Coded Allergies: No Known Drug Allergies (Unverified , 11/06/16) ROS Review of System 14 point ROS evaluated with pertinent positives noted per HPI PHYSICAL EXAM General: Alert, Oriented X3, Cooperative, No acute distress HEENT: Atraumatic, Mucous membr. moist/pink Lungs: Clear to auscultation, Normal air movement Heart: Regular rate, Normal S1, Normal S2, Other (2/6 systolic murmur to LLS border) Abdomen: Soft (with diffuse mild tenderness with palpation) Extremities: No cyanosis, No edema Skin: No breakdown, No significant lesion Neuro: Normal speech, Sensation intact Psych/Mental Status: Mood NL MUSCULOSKELETAL: Osteoarthritic changes both hands VITALS VITALS Vital Signs Date Time Temp Pulse Resp B/P Pulse Ox O2 Delivery O2 Flow Rate FiO2 11/07/16 08:44 78 119/71 11/07/16 07:27 97.8 20 96 Room Air 97.8 LABS Lab: Laboratory Tests Test 11/06/16 12:40 11/06/16 13:02 11/06/16 13:30 11/07/16 04:10 White Blood Count 13.4x10^3/uL (4.0-11.0) 14.3x10^3/uL (4.0-11.0) Red Blood Count 6.37x10^6/uL (3.50-5.40) 5.19x10^6/uL (3.50-5.40) Hemoglobin 16.6g/dL (12.0-15.5) 13.2g/dL (12.0-15.5) Hematocrit 50.0% (36.0-47.0) 40.5% (36.0-47.0) Mean Corpuscular Volume 79fL (79-100) 78fL (79-100) Mean Corpuscular Hemoglobin 26pg (25-35) 26pg (25-35) Mean Corpuscular Hemoglobin Concent 33g/dL (31-37) 33g/dL (31-37) Red Cell Distribution Width 18.5% (11.5-14.5) 18.3% (11.5-14.5) Platelet Count 282x10^3/uL (140-400) 220x10^3/uL (140-400) Neutrophils (%) (Auto) 89% (31-73) 92% (31-73) Lymphocytes (%) (Auto) 7% (24-48) 4% (24-48) Monocytes (%) (Auto) 4% (0-9) 4% (0-9) Eosinophils (%) (Auto) 0% (0-3) 0% (0-3) Basophils (%) (Auto) 0% (0-3) 0% (0-3) Neutrophils # (Auto) 11.8x10^3uL (1.8-7.7) 13.1x10^3uL (1.8-7.7) Lymphocytes # (Auto) 0.9x10^3/uL (1.0-4.8) 0.5x10^3/uL (1.0-4.8) Monocytes # (Auto) 0.6x10^3/uL (0.0-1.1) 0.6x10^3/uL (0.0-1.1) Eosinophils # (Auto) 0.0x10^3/uL (0.0-0.7) 0.0x10^3/uL (0.0-0.7) Basophils # (Auto) 0.0x10^3/uL (0.0-0.2) 0.0x10^3/uL (0.0-0.2) Segmented Neutrophils % 90% (35-66) Lymphocytes % 5% (24-48) Monocytes % 5% (0-10) Platelet Estimate Adequate (ADEQUATE) Polychromasia Slight Anisocytosis Slight Ovalocytes Occ Sodium Level 136mmol/L (136-145) 139mmol/L (136-145) 142mmol/L (136-145) Potassium Level 3.3mmol/L (3.5-5.1) 2.9mmol/L (3.5-5.1) 3.5mmol/L (3.5-5.1) Chloride Level 95mmol/L (98-107) 97mmol/L (98-107) 107mmol/L (98-107) Carbon Dioxide Level 29mmol/L (21-32) 29mmol/L (21-32) 26mmol/L (21-32) Anion Gap 12 (6-14) 13 (6-14) 9 (6-14) Blood Urea Nitrogen 20mg/dL (7-20) 20mg/dL (7-20) 11mg/dL (7-20) Creatinine 1.0mg/dL (0.6-1.0) 0.9mg/dL (0.6-1.0) 0.7mg/dL (0.6-1.0) Estimated GFR (Cockcroft-Gault) 53.8 60.7 81.1 Glucose Level 145mg/dL (70-99) 140mg/dL (70-99) 97mg/dL (70-99) Lactic Acid Level 1.8mmol/L (0.4-2.0) Calcium Level 9.6mg/dL (8.5-10.1) 9.2mg/dL (8.5-10.1) 7.7mg/dL (8.5-10.1) Total Bilirubin 0.9mg/dL (0.2-1.0) 0.8mg/dL (0.2-1.0) Direct Bilirubin 0.2mg/dL (0.0-0.2) 0.2mg/dL (0.0-0.2) Aspartate Amino Transf (AST/SGOT) 27U/L (15-37) 20U/L (15-37) Alanine Aminotransferase (ALT/SGPT) 24U/L (14-59) 23U/L (14-59) Alkaline Phosphatase 113U/L (46-116) 102U/L (46-116) Troponin I Quantitative < 0.017ng/mL (0.000-0.055) Total Protein 8.0g/dL (6.4-8.2) 6.8g/dL (6.4-8.2) Albumin 4.0g/dL (3.4-5.0) 3.7g/dL (3.4-5.0) Lipase 274U/L (73-393) 257U/L (73-393) Urine Collection Type U cath Urine Color Yellow Urine Clarity Clear Urine pH 7.5 Urine Specific [place] 1.020 Urine Protein 30mg/dL (NEG-TRACE) Urine Glucose (UA) Negativemg/dL (NEG) Urine Ketones (Stick) >=80mg/dL (NEG) Urine Blood Moderate (NEG) Urine Nitrite Negative (NEG) Urine Bilirubin Negative (NEG) Urine Urobilinogen Dipstick 1.0mg/dL (0.2 mg/dL) Urine Leukocyte Esterase Negative (NEG) Urine RBC 11-20/HPF (0-2) Urine WBC 1-4/HPF (0-4) Urine Squamous Epithelial Cells Few/LPF Urine Bacteria Moderate/HPF (0-FEW) Urine Hyaline Casts Occasional/HPF Urine Mucus Slight/LPF LI-Gde-S-Type Natriuretic Peptide 738pg/mL (0-449) ASSESSMENT/PLAN ASSESSMENT/PLAN 1. Abnormal EKG: SR with diffuse nonspecific ST depression. Troponins normal. No associated cardiac symptoms, highly suspect significant hypokalemia with low Mg 2. Accelerated HTN: LV strain would also contribute to above. Better controlled 3. Acute gastroenteritis with dehydration: per PCP 4. Mechanical fall: volume depletion could have contributed to this. No trauma 5. COPD with continued tobaccoism 6. Hx of carotid artery disease with stent placement? Recommendations 1. TTE today, if no significant changes then no further workup is warranted. 2. Replace K and Mg. 3. IV hydration 4. Resume antiHTN Problems: JAYNE HDZ MD 11/07/16 1424: CARDIAC CONSULT ALLERGIES ALLERGIES: Coded Allergies: No Known Drug Allergies (Unverified , 11/06/16) ASSESSMENT/PLAN ASSESSMENT/PLAN Patient seen and examined. Agree with NURSING STAFFING COORDINATOR's assessment and plan. Patient admitted with symptoms of acute gastroenteritis and noted to have an abnormal EKG with diffuse nonspecific ST depressions. Replace potassium orally. Check 2-D echocardiogram to assess LV systolic function and rule out wall motion abnormalities. Blood pressure better controlled since admission. Continue supportive care for acute gastroenteritis. Thank you for your consultation. Problems: CLARISA PANTOJA APRN Nov 07, 2016 09:27 JAYNE HDZ MD Nov 07, 2016 14:24
[2016-11-07] MEDS: PROCHLORPERAZINE 10 MG/2 ML VIAL. IV PRN (09:32)
[2016-11-07] MEDS: CALCIUM CARBONATE 500 MG TABLET PO SCH (09:32)
[2016-11-07] MEDS: MORPHINE ER 15 MG TABLET.ER PO SCH ×2 (09:32→20:56)
[2016-11-07] MEDS: CETIRIZINE HCL 10 MG TABLET. PO SCH (09:32)
--- NOTE | 2016-11-07 10:59 | EKG ---
[facility] [address] [place] [address] Test Date: 2016-11-07 Test Time: 10:50:03 Pat Name: YING MARTINEZ Department: Room: 204 1 Gender: F Computer Drafter: SATHYA : 1940 Requested By: CLARISA PANTOJA Order Number: [id number] Reading MD: Measurements Intervals [place] Rate: 76 P: 90 MI: 144 QRS: 20 QRSD: 86 T: 66 QT: 408 QTc: 464 Interpretive Statements SINUS RHYTHM LOW LIMB LEAD VOLTAGE NO SPECIFIC ECG ABNORMALITIES RI6.01 Compared to ECG 11/06/2016 13:17:01 Sinus tachycardia no longer present Left-axis deviation no longer present Atrial abnormality no longer present
[2016-11-07] MEDS ORDERED: LOPERAMIDE 2 MG CAPSULE PO PRN (11:45)
[2016-11-07] MEDS ORDERED: METRONIDAZOLE 500mg PREMIX 100 ML IV SCH (12:00)
[2016-11-07] MEDS ORDERED: PROMETHAZINE 12.5 MG TABLET. PO PRN (12:00)
[2016-11-07] MEDS ORDERED: PROMETHAZINE 6.25 MG in IV NORMAL SALINE 50ML 50 ML IV PRN (12:00)
[2016-11-07] MEDS ORDERED: MAGNESIUM SULFATE 2GM 50 ML IV ONE (12:00)
[2016-11-07] MEDS ORDERED: IV NORMAL SALINE 1000ML BAG 1,000 ML IV SCH (12:06)
--- NOTE | 2016-11-07 12:06 | PDOC ---
PROGRESS NOTES Chief Complaint Chief Complaint 1. Nausea, emesis, dehydration 2. Hemoconcentration sec to dehydration 3. Leukocytosis, likely reactive 4. smoker, hx COPD, HTN, depression per documentation 5. Hypokalemia 6. MOd to severe PCM 7. Hx rolle's, bezoars, chronic GERD 8. DIANA, vasomotor sec to above History of Present Illness History of Present Illness DRy heaving, but no emesis Chronic hx of nausea, phenergan helps Long hx of GERD< bailey's with mention of precancerous lesion? (has been to [place] - etc)- followed with a DR. Burger (see my H and P) LAbs better except for WBC still elevated - did not get steroids as far as i know No diarrhea Did relatively well with PT HH planned upon dc PLAn: Consult Gi re the above issues Start phenergan IV and PO prn PT/OT HH upon dc TTE planned by cards December IVF to 100cc./hr Dw pt and RN Vitals Vitals Vital Signs Date Time Temp Pulse Resp B/P Pulse Ox O2 Delivery O2 Flow Rate FiO2 11/07/16 10:24 98.0 81 18 135/80 97 Room Air 98.0 Physical Exam General: Alert, Oriented X3, Cooperative, No acute distress, Other (dry skin, skin and bones) Abdomen: Soft, Other (scaphoid) Extremities: No clubbing, No cyanosis, No edema, Normal pulses, No tenderness/ swelling Skin: No rashes, No breakdown, No significant lesion Labs LABS Laboratory Tests Test 11/06/16 12:40 11/06/16 13:02 11/06/16 13:30 11/07/16 04:10 White Blood Count 13.4x10^3/uL (4.0-11.0) 14.3x10^3/uL (4.0-11.0) Red Blood Count 6.37x10^6/uL (3.50-5.40) 5.19x10^6/uL (3.50-5.40) Hemoglobin 16.6g/dL (12.0-15.5) 13.2g/dL (12.0-15.5) Hematocrit 50.0% (36.0-47.0) 40.5% (36.0-47.0) Mean Corpuscular Volume 79fL (79-100) 78fL (79-100) Mean Corpuscular Hemoglobin 26pg (25-35) 26pg (25-35) Mean Corpuscular Hemoglobin Concent 33g/dL (31-37) 33g/dL (31-37) Red Cell Distribution Width 18.5% (11.5-14.5) 18.3% (11.5-14.5) Platelet Count 282x10^3/uL (140-400) 220x10^3/uL (140-400) Neutrophils (%) (Auto) 89% (31-73) 92% (31-73) Lymphocytes (%) (Auto) 7% (24-48) 4% (24-48) Monocytes (%) (Auto) 4% (0-9) 4% (0-9) Eosinophils (%) (Auto) 0% (0-3) 0% (0-3) Basophils (%) (Auto) 0% (0-3) 0% (0-3) Neutrophils # (Auto) 11.8x10^3uL (1.8-7.7) 13.1x10^3uL (1.8-7.7) Lymphocytes # (Auto) 0.9x10^3/uL (1.0-4.8) 0.5x10^3/uL (1.0-4.8) Monocytes # (Auto) 0.6x10^3/uL (0.0-1.1) 0.6x10^3/uL (0.0-1.1) Eosinophils # (Auto) 0.0x10^3/uL (0.0-0.7) 0.0x10^3/uL (0.0-0.7) Basophils # (Auto) 0.0x10^3/uL (0.0-0.2) 0.0x10^3/uL (0.0-0.2) Segmented Neutrophils % 90% (35-66) Lymphocytes % 5% (24-48) Monocytes % 5% (0-10) Platelet Estimate Adequate (ADEQUATE) Polychromasia Slight Anisocytosis Slight Ovalocytes Occ Sodium Level 136mmol/L (136-145) 139mmol/L (136-145) 142mmol/L (136-145) Potassium Level 3.3mmol/L (3.5-5.1) 2.9mmol/L (3.5-5.1) 3.5mmol/L (3.5-5.1) Chloride Level 95mmol/L (98-107) 97mmol/L (98-107) 107mmol/L (98-107) Carbon Dioxide Level 29mmol/L (21-32) 29mmol/L (21-32) 26mmol/L (21-32) Anion Gap 12 (6-14) 13 (6-14) 9 (6-14) Blood Urea Nitrogen 20mg/dL (7-20) 20mg/dL (7-20) 11mg/dL (7-20) Creatinine 1.0mg/dL (0.6-1.0) 0.9mg/dL (0.6-1.0) 0.7mg/dL (0.6-1.0) Estimated GFR (Cockcroft-Gault) 53.8 60.7 81.1 Glucose Level 145mg/dL (70-99) 140mg/dL (70-99) 97mg/dL (70-99) Lactic Acid Level 1.8mmol/L (0.4-2.0) Calcium Level 9.6mg/dL (8.5-10.1) 9.2mg/dL (8.5-10.1) 7.7mg/dL (8.5-10.1) Total Bilirubin 0.9mg/dL (0.2-1.0) 0.8mg/dL (0.2-1.0) Direct Bilirubin 0.2mg/dL (0.0-0.2) 0.2mg/dL (0.0-0.2) Aspartate Amino Transf (AST/SGOT) 27U/L (15-37) 20U/L (15-37) Alanine Aminotransferase (ALT/SGPT) 24U/L (14-59) 23U/L (14-59) Alkaline Phosphatase 113U/L (46-116) 102U/L (46-116) Troponin I Quantitative < 0.017ng/mL (0.000-0.055) < 0.017ng/mL (0.000-0.055) Total Protein 8.0g/dL (6.4-8.2) 6.8g/dL (6.4-8.2) Albumin 4.0g/dL (3.4-5.0) 3.7g/dL (3.4-5.0) Lipase 274U/L (73-393) 257U/L (73-393) Urine Collection Type U cath Urine Color Yellow Urine Clarity Clear Urine pH 7.5 Urine Specific Oden 1.020 Urine Protein 30mg/dL (NEG-TRACE) Urine Glucose (UA) Negativemg/dL (NEG) Urine Ketones (Stick) >=80mg/dL (NEG) Urine Blood Moderate (NEG) Urine Nitrite Negative (NEG) Urine Bilirubin Negative (NEG) Urine Urobilinogen Dipstick 1.0mg/dL (0.2 mg/dL) Urine Leukocyte Esterase Negative (NEG) Urine RBC 11-20/HPF (0-2) Urine WBC 1-4/HPF (0-4) Urine Squamous Epithelial Cells Few/LPF Urine Bacteria Moderate/HPF (0-FEW) Urine Hyaline Casts Occasional/HPF Urine Mucus Slight/LPF [id number] Natriuretic Peptide 738pg/mL (0-449) Magnesium Level 1.7mg/dL (1.8-2.4) Review of Systems Review of Systems dry heaving, no nausea, no emesis, no diarrhea Assessment and Plan Assessmemt and Plan Problems Medical Problems: (1) Cough Status: Acute (2) Dehydration Status: Acute (3) Dysuria Status: Acute (4) Hypovolemia Status: Acute (5) Sinus tachycardia Status: Acute (6) ST segment changes on electrocardiography Status: Acute Problems: Comment Review of Relevant I have reviewed the following items roman (where applicable) has been applied. Labs Laboratory Tests Test 11/06/16 12:40 11/06/16 13:02 11/06/16 13:30 11/07/16 04:10 White Blood Count 13.4x10^3/uL (4.0-11.0) 14.3x10^3/uL (4.0-11.0) Red Blood Count 6.37x10^6/uL (3.50-5.40) 5.19x10^6/uL (3.50-5.40) Hemoglobin 16.6g/dL (12.0-15.5) 13.2g/dL (12.0-15.5) Hematocrit 50.0% (36.0-47.0) 40.5% (36.0-47.0) Mean Corpuscular Volume 79fL (79-100) 78fL (79-100) Mean Corpuscular Hemoglobin 26pg (25-35) 26pg (25-35) Mean Corpuscular Hemoglobin Concent 33g/dL (31-37) 33g/dL (31-37) Red Cell Distribution Width 18.5% (11.5-14.5) 18.3% (11.5-14.5) Platelet Count 282x10^3/uL (140-400) 220x10^3/uL (140-400) Neutrophils (%) (Auto) 89% (31-73) 92% (31-73) Lymphocytes (%) (Auto) 7% (24-48) 4% (24-48) Monocytes (%) (Auto) 4% (0-9) 4% (0-9) Eosinophils (%) (Auto) 0% (0-3) 0% (0-3) Basophils (%) (Auto) 0% (0-3) 0% (0-3) Neutrophils # (Auto) 11.8x10^3uL (1.8-7.7) 13.1x10^3uL (1.8-7.7) Lymphocytes # (Auto) 0.9x10^3/uL (1.0-4.8) 0.5x10^3/uL (1.0-4.8) Monocytes # (Auto) 0.6x10^3/uL (0.0-1.1) 0.6x10^3/uL (0.0-1.1) Eosinophils # (Auto) 0.0x10^3/uL (0.0-0.7) 0.0x10^3/uL (0.0-0.7) Basophils # (Auto) 0.0x10^3/uL (0.0-0.2) 0.0x10^3/uL (0.0-0.2) Segmented Neutrophils % 90% (35-66) Lymphocytes % 5% (24-48) Monocytes % 5% (0-10) Platelet Estimate Adequate (ADEQUATE) Polychromasia Slight Anisocytosis Slight Ovalocytes Occ Sodium Level 136mmol/L (136-145) 139mmol/L (136-145) 142mmol/L (136-145) Potassium Level 3.3mmol/L (3.5-5.1) 2.9mmol/L (3.5-5.1) 3.5mmol/L (3.5-5.1) Chloride Level 95mmol/L (98-107) 97mmol/L (98-107) 107mmol/L (98-107) Carbon Dioxide Level 29mmol/L (21-32) 29mmol/L (21-32) 26mmol/L (21-32) Anion Gap 12 (6-14) 13 (6-14) 9 (6-14) Blood Urea Nitrogen 20mg/dL (7-20) 20mg/dL (7-20) 11mg/dL (7-20) Creatinine 1.0mg/dL (0.6-1.0) 0.9mg/dL (0.6-1.0) 0.7mg/dL (0.6-1.0) Estimated GFR (Cockcroft-Gault) 53.8 60.7 81.1 Glucose Level 145mg/dL (70-99) 140mg/dL (70-99) 97mg/dL (70-99) Lactic Acid Level 1.8mmol/L (0.4-2.0) Calcium Level 9.6mg/dL (8.5-10.1) 9.2mg/dL (8.5-10.1) 7.7mg/dL (8.5-10.1) Total Bilirubin 0.9mg/dL (0.2-1.0) 0.8mg/dL (0.2-1.0) Direct Bilirubin 0.2mg/dL (0.0-0.2) 0.2mg/dL (0.0-0.2) Aspartate Amino Transf (AST/SGOT) 27U/L (15-37) 20U/L (15-37) Alanine Aminotransferase (ALT/SGPT) 24U/L (14-59) 23U/L (14-59) Alkaline Phosphatase 113U/L (46-116) 102U/L (46-116) Troponin I Quantitative < 0.017ng/mL (0.000-0.055) < 0.017ng/mL (0.000-0.055) Total Protein 8.0g/dL (6.4-8.2) 6.8g/dL (6.4-8.2) Albumin 4.0g/dL (3.4-5.0) 3.7g/dL (3.4-5.0) Lipase 274U/L (73-393) 257U/L (73-393) Urine Collection Type U cath Urine Color Yellow Urine Clarity Clear Urine pH 7.5 Urine Specific Oden 1.020 Urine Protein 30mg/dL (NEG-TRACE) Urine Glucose (UA) Negativemg/dL (NEG) Urine Ketones (Stick) >=80mg/dL (NEG) Urine Blood Moderate (NEG) Urine Nitrite Negative (NEG) Urine Bilirubin Negative (NEG) Urine Urobilinogen Dipstick 1.0mg/dL (0.2 mg/dL) Urine Leukocyte Esterase Negative (NEG) Urine RBC 11-20/HPF (0-2) Urine WBC 1-4/HPF (0-4) Urine Squamous Epithelial Cells Few/LPF Urine Bacteria Moderate/HPF (0-FEW) Urine Hyaline Casts Occasional/HPF Urine Mucus Slight/LPF [id number]-Type Natriuretic Peptide 738pg/mL (0-449) Magnesium Level 1.7mg/dL (1.8-2.4) Laboratory Tests Test 11/06/16 12:40 11/06/16 13:02 11/06/16 13:30 11/07/16 04:10 White Blood Count 13.4x10^3/uL (4.0-11.0) 14.3x10^3/uL (4.0-11.0) Red Blood Count 6.37x10^6/uL (3.50-5.40) 5.19x10^6/uL (3.50-5.40) Hemoglobin 16.6g/dL (12.0-15.5) 13.2g/dL (12.0-15.5) Hematocrit 50.0% (36.0-47.0) 40.5% (36.0-47.0) Mean Corpuscular Volume 79fL (79-100) 78fL (79-100) Mean Corpuscular Hemoglobin 26pg (25-35) 26pg (25-35) Mean Corpuscular Hemoglobin Concent 33g/dL (31-37) 33g/dL (31-37) Red Cell Distribution Width 18.5% (11.5-14.5) 18.3% (11.5-14.5) Platelet Count 282x10^3/uL (140-400) 220x10^3/uL (140-400) Neutrophils (%) (Auto) 89% (31-73) 92% (31-73) Lymphocytes (%) (Auto) 7% (24-48) 4% (24-48) Monocytes (%) (Auto) 4% (0-9) 4% (0-9) Eosinophils (%) (Auto) 0% (0-3) 0% (0-3) Basophils (%) (Auto) 0% (0-3) 0% (0-3) Neutrophils # (Auto) 11.8x10^3uL (1.8-7.7) 13.1x10^3uL (1.8-7.7) Lymphocytes # (Auto) 0.9x10^3/uL (1.0-4.8) 0.5x10^3/uL (1.0-4.8) Monocytes # (Auto) 0.6x10^3/uL (0.0-1.1) 0.6x10^3/uL (0.0-1.1) Eosinophils # (Auto) 0.0x10^3/uL (0.0-0.7) 0.0x10^3/uL (0.0-0.7) Basophils # (Auto) 0.0x10^3/uL (0.0-0.2) 0.0x10^3/uL (0.0-0.2) Segmented Neutrophils % 90% (35-66) Lymphocytes % 5% (24-48) Monocytes % 5% (0-10) Platelet Estimate Adequate (ADEQUATE) Polychromasia Slight Anisocytosis Slight Ovalocytes Occ Sodium Level 136mmol/L (136-145) 139mmol/L (136-145) 142mmol/L (136-145) Potassium Level 3.3mmol/L (3.5-5.1) 2.9mmol/L (3.5-5.1) 3.5mmol/L (3.5-5.1) Chloride Level 95mmol/L (98-107) 97mmol/L (98-107) 107mmol/L (98-107) Carbon Dioxide Level 29mmol/L (21-32) 29mmol/L (21-32) 26mmol/L (21-32) Anion Gap 12 (6-14) 13 (6-14) 9 (6-14) Blood Urea Nitrogen 20mg/dL (7-20) 20mg/dL (7-20) 11mg/dL (7-20) Creatinine 1.0mg/dL (0.6-1.0) 0.9mg/dL (0.6-1.0) 0.7mg/dL (0.6-1.0) Estimated GFR (Cockcroft-Gault) 53.8 60.7 81.1 Glucose Level 145mg/dL (70-99) 140mg/dL (70-99) 97mg/dL (70-99) Lactic Acid Level 1.8mmol/L (0.4-2.0) Calcium Level 9.6mg/dL (8.5-10.1) 9.2mg/dL (8.5-10.1) 7.7mg/dL (8.5-10.1) Total Bilirubin 0.9mg/dL (0.2-1.0) 0.8mg/dL (0.2-1.0) Direct Bilirubin 0.2mg/dL (0.0-0.2) 0.2mg/dL (0.0-0.2) Aspartate Amino Transf (AST/SGOT) 27U/L (15-37) 20U/L (15-37) Alanine Aminotransferase (ALT/SGPT) 24U/L (14-59) 23U/L (14-59) Alkaline Phosphatase 113U/L (46-116) 102U/L (46-116) Troponin I Quantitative < 0.017ng/mL (0.000-0.055) < 0.017ng/mL (0.000-0.055) Total Protein 8.0g/dL (6.4-8.2) 6.8g/dL (6.4-8.2) Albumin 4.0g/dL (3.4-5.0) 3.7g/dL (3.4-5.0) Lipase 274U/L (73-393) 257U/L (73-393) Urine Collection Type U cath Urine Color Yellow Urine Clarity Clear Urine pH 7.5 Urine Specific Oden 1.020 Urine Protein 30mg/dL (NEG-TRACE) Urine Glucose (UA) Negativemg/dL (NEG) Urine Ketones (Stick) >=80mg/dL (NEG) Urine Blood Moderate (NEG) Urine Nitrite Negative (NEG) Urine Bilirubin Negative (NEG) Urine Urobilinogen Dipstick 1.0mg/dL (0.2 mg/dL) Urine Leukocyte Esterase Negative (NEG) Urine RBC 11-20/HPF (0-2) Urine WBC 1-4/HPF (0-4) Urine Squamous Epithelial Cells Few/LPF Urine Bacteria Moderate/HPF (0-FEW) Urine Hyaline Casts Occasional/HPF Urine Mucus Slight/LPF [id number]-Type Natriuretic Peptide 738pg/mL (0-449) Magnesium Level 1.7mg/dL (1.8-2.4) Medications Current Medications Ondansetron HCl (Zofran) 4 mg PRN Q30MIN PRN IV NAUSEA/VOMITING Last administered on 11/06/16 13:35; Start 11/06/16 at 12:45 Fentanyl Citrate 25 mcg 25 mcg PRN Q30MIN PRN IV PAIN Last administered on 13:35; Start 11/06/16 at 12:45 Sodium Chloride (Iv Sodium Chloride 0.9% 500ml Bag) 500 ml @ 500 mls/hr 1X ONCE IV Last administered on 11/06/16 13:53; Start 11/06/16 at 14:15; Stop at 15:14; Status DC Potassium Chloride 40 meq 40 meq 1X ONCE PO Last administered on 11/06/16 18: 31; Start 11/06/16 at 14:15; Stop 11/06/16 at 14:16; Status DC Ceftriaxone Sodium (Rocephin 1gm Ivpb For Omni) 50 ml @ 100 mls/hr 1X ONCE IV Last administered on 11/06/16 14:45; Start 11/06/16 at 14:45; Stop 11/06/16 at 15:14; Status DC Ondansetron HCl (Zofran) 4 mg PRN Q6HRS PRN IV NAUSEA/VOMITING; Start 11/06/16 at 14:30 Prochlorperazine Edisylate (Compazine) 10 mg PRN Q6HRS PRN IV NAUSEA/VOMITING Last administered on 11/07/16 09:32; Start 11/06/16 at 14:30 Prochlorperazine (Compazine) 25 mg PRN Q12HR PRN NM NAUSEA/VOMITING; Start 11/06 at 14:30 Al Hydroxide/Mg Hydroxide (Mylanta Plus Xs) 30 ml PRN Q3HRS PRN PO HEARTBURN / GAS; Start 11/06/16 at 14:30 Calcium Carbonate/ Glycine (Tums) 500 mg PRN Q3HRS PRN PO UPSET STOMACH; Start 11/06/16 at 14:30 Oxycodone HCl (Roxicodone) 5 mg PRN Q3HRS PRN PO BREAKTHROUGH PAIN; Start at 14:30 Morphine Sulfate 1 mg PRN Q2HR PRN IV PAIN; Start 11/06/16 at 14:30 Ketorolac Tromethamine (Toradol) 15 mg PRN Q6HRS PRN IV PAIN; Start 11/06/16 at 14:30; Stop 11/11/16 at 14:29 Docusate Sodium (Colace) 100 mg BID PO Last administered on 11/07/16 08:44; Start 11/06/16 at 21:00 Magnesium Hydroxide (Milk Of Magnesia) 2,400 mg PRN Q12HR PRN PO CONSTIPATION; Start 11/06/16 at 14:30 Bisacodyl (Dulcolax Supp) 10 mg PRN DAILY PRN NM CONSTIPATION; Start 11/06/16 at 14:30 Enoxaparin Sodium (Lovenox 30mg Syringe) 30 mg Q24H SQ Last administered on 11/06 22:22; Start 11/06/16 at 21:00 Acetaminophen 500 mg 500 mg PRN Q6HRS PRN PO pain; Start 11/06/16 at 14:30 Sodium Chloride (Iv Sodium Chloride 0.9% 1000ml Bag) 1,000 ml @ 125 mls/hr CONT IV Last administered on 11/06/16 15:56; Start 11/06/16 at 14:30; Stop at 16:01; Status DC Nicotine 1 patch 1 patch PRN DAILY PRN TD SMOKING CESSATION; Start 11/06/16 at 14:30 Sodium Chloride (Iv Sodium Chloride 0.9% 1000ml Bag) 1,000 ml @ 125 mls/hr CONT PRN IV . Last administered on 11/07/16 07:01; Start 11/06/16 at 16:01 Potassium Chloride (Klor-Con) 40 meq 1X ONCE PO Last administered on 11/06/16 18:31; Start 11/06/16 at 18:15; Stop 11/06/16 at 18:16; Status DC Labetalol HCl (Normodyne) 10 mg PRN Q2HR PRN IVP HYPERTENSION, SEE COMMENTS; Start 11/06/16 at 20:00 Metoprolol Tartrate (Lopressor) 25 mg BID PO Last administered on 11/07/16 08: 44; Start 11/06/16 at 21:00 Amlodipine Besylate (Norvasc) 10 mg DAILY PO Last administered on 11/07/16 08: 43; Start 11/07/16 at 09:00 Cetirizine HCl (Zyrtec) 10 mg DAILY PO Last administered on 11/07/16 09:32; Start 11/07/16 at 09:00 Cyclosporine (Restasis) 1 drop BID OU Last administered on 11/07/16 08:42; Start 11/06/16 at 21:00 Acetaminophen/ Hydrocodone Bitart (Lortab 5/325) 1 tab PRN Q6HRS PRN PO PAIN; Start 11/06/16 at 21:00 Latanoprost (Xalatan) 1 drop QHS OU Last administered on 11/07/16 08:42; Start 11/06/16 at 22:00 Morphine Sulfate (Ms Contin) 15 mg BID PO Last administered on 11/07/16 09:32; Start 11/06/16 at 22:00 Oxybutynin Chloride (Ditropan) 5 mg BID PO Last administered on 11/07/16 08:42 ; Start 11/06/16 at 22:00 Calcium Carbonate/ Glycine (Oscal) 500 mg DAILY PO Last administered on 09:32; Start 11/07/16 at 09:00 Pantoprazole Sodium (Protonix) 40 mg DAILYAC PO Last administered on 11/07/16 08:43; Start 11/07/16 at 07:30 Ondansetron HCl (Zofran Odt) 4 mg PRN Q8HRS PRN PO NAUSEA/VOMITING; Start at 21:15 Paroxetine HCl (Paxil) 40 mg DAILY PO Last administered on 11/07/16 08:42; Start 11/07/16 at 09:00 Potassium Chloride (Klor-Con) 20 meq TIDWMEALS PO Last administered on 08:43; Start 11/07/16 at 08:00 Vitamin B Complex (Isidro B) 1 tab DAILY PO Last administered on 11/07/16 08:42; Start 11/07/16 at 09:00 Trazodone HCl 50 mg 50 mg PRN QHS PRN PO INSOMNIA; Start 11/06/16 at 22:15 Ciprofloxacin Lactate 200 ml @ 200 mls/hr Q24H IV ; Start 11/07/16 at 13:00; Stop 11/07/16 at 13:00; Status DC Metronidazole (FLAGYL 500Mmg PREMIX) 100 ml @ 100 mls/hr Q12HR IV ; Start at 12:00; Stop 11/07/16 at 12:00; Status DC Loperamide HCl 2 mg 2 mg PRN Q15MIN PRN PO DIARRHEA; Start 11/07/16 at 11:45 Magnesium Sulfate/ Dextrose 50 ml @ 25 mls/hr 1X ONCE IV ; Start 11/07/16 at 12: 00; Stop 11/07/16 at 13:59 Promethazine HCl/ Sodium Chloride (Phenergan/Iv Sodium Chloride 0.9% 50ml) 50.25 ml @ 150.75 mls/ hr PRN Q6HRS PRN IV NAUSEA/VOMITING; Start 11/07/16 at 12:00; Status UNV Promethazine HCl (Phenergan) 12.5 mg PRN Q6HRS PRN PO NAUSEA/VOMITING; Start at 12:00; Status UNV Active Scripts Active Reported Super B Complex (Vitamin B Complex & Vit C No.4) 150 Mg Tablet 150 Mg PO DAILY Zofran (Ondansetron Hcl) 4 Mg Tablet 1 Tab PO PRN Q6-8HRS Latanoprost 2.5 Ml Drops 1 Drop EACHEYE QHS Restasis (Cyclosporine) 1 Each Droperette 1 Drop EACHEYE BID Omeprazole 10 Mg Capsule.dr 10 Mg PO HS Omeprazole 10 Mg Capsule.dr 10 Mg PO DAILY Zyrtec (Cetirizine Hcl) 10 Mg Tablet 1 Tab PO DAILY Trazodone Hcl 100 Mg Tablet 1 Tab PO QHS Paroxetine Hcl 40 Mg Tablet 1 Tab PO DAILY Calcium Citrate 200 Mg Tablet 600 Mg PO DAILY Hydrocodone-Apap 5-325 (Hydrocodone Bit/Acetaminophen) 1 Each Tablet 1 Tab PO PRN Q6HRS PRN Morphine Sulfate Er (Morphine Sulfate) 15 Mg Tablet.er 1 Tab PO BID Potassium Chloride 10 Meq Capsule.er 20 Meq PO TID Oxybutynin Chloride 5 Mg Tablet 2 Tab PO BID Amlodipine Besylate 10 Mg Tablet 10 Mg PO DAILY Metoprolol Tartrate 25 Mg Tablet 1 Tab PO BID Vitals/I & O Vital Sign - Last 24 Hours 11/06/16 11/06/16 11/06/16 11/06/16 12:24 13:35 13:35 14:30 Temp 97.6 97.6 Pulse 126 122 114 Resp 18 18 18 B/P 156/96 138/78 178/99 Pulse Ox 97 95 95 O2 Delivery Room Air Room Air Room Air 11/06/16 11/06/16 11/06/16 11/06/16 15:00 16:14 19:30 19:35 Temp 98.8 98.8 Pulse 116 114 140 Resp 18 18 20 B/P 160/92 170/89 181/118 Pulse Ox 96 96 96 O2 Delivery Room Air Room Air Room Air Room Air 11/06/16 11/06/16 11/06/16 11/06/16 20:00 22:25 22:27 23:25 Temp 98.4 98.4 Pulse 110 109 Resp 20 20 B/P 136/73 179/93 Pulse Ox 98 O2 Delivery Room Air Room Air 11/07/16 11/07/16 11/07/16 11/07/16 00:48 02:25 03:05 07:27 Temp 97.7 97.8 97.7 97.8 Pulse 81 76 78 Resp 16 18 20 B/P 156/91 125/68 119/71 Pulse Ox 95 96 O2 Delivery Room Air Room Air 11/07/16 11/07/16 11/07/16 11/07/16 08:00 08:43 08:44 09:32 Pulse 78 78 B/P 119/71 119/71 O2 Delivery Room Air Room Air 11/07/16 10:24 Temp 98.0 98.0 Pulse 81 Resp 18 B/P 135/80 Pulse Ox 97 O2 Delivery Room Air Intake and Output 11/06/16 11/06/16 11/07/16 15:00 23:00 07:00 Intake Total 500 ml 1726 ml Output Total 700 ml Balance 500 ml 1026 ml GEORGETTE POON MD Nov 07, 2016 12:06
[2016-11-07] MEDS ORDERED: CIPROFLOXACIN 400MG PREMIX 200 ML IV SCH (13:00)
--- NOTE | 2016-11-07 15:41 | PDOC2 ---
GI CONSULT Reason For Consult: Chronic nausea, h/o GERD/Shultz's, bezoar HPI: HPI: 76 y/o female admitted w/ weakness, dehydration, and fall (w/o LOC). She is followed by cardiology for abnormal EKG in the setting of hypomagnesemia; echocardiogram is pending. GI-minor, she reports intermittent n/v since around Kristi time when she and other [facility] a [facility] were [facility] w/ gastroenteritis. GI history is significant for PUD s/p vagotomy w/ partial gastrectomy in the , Shultz's esophagus w/ treatment at [facility] (previously evaluated by Dr. Burger, on omeprazole), and bezoar as noted on last EGD within the past year which was perhaps performed in [facility] where her daughter was working. Vomiting occurs every few days w/o pattern. She has probably lost some weight recently, although she's not sure how much. To me, she denies diarrhea and reports constipation which also occurs intermittently and resolves spontaneously. Her last colonoscopy was also performed within the last year and was reportedly normal. Denies hematemesis, hematochezia, melena. Has chronic epigastric pain that is stable and unchanged; pain is w/o aggravating or alleviating factors. Per RN, is doing better this afternoon, eating cake. PMH: PMH: HTN, CAD, COPD, GERD/Shultz's esophagus, PUD, bezoar, anxiety/depression, OA, allergic rhinitis, glaucoma, appendectomy, tonsillectomy, hysterectomy, knee and hip surgery, cervical fusion, vagotomy w/ partial gastrectomy, cholecystectomy FH: Family History: CAD Social History: Smoke: 1 pack per day (>40 yrs) ALCOHOL: none Drugs: None ROS: GEN: Denies fevers, chills, sweats HEENT: Denies blurred vision, sore throat CV: Denies chest pain RESP: Denies shortness of air, cough GI: Per HPI : Denies hematuria, dysuria ENDO: +?weight loss NEURO: Denies confusion, dizziness MSK: +weakness SKIN: Denies jaundice, pruritus VItals: Vitals: Vital Signs Date Time Temp Pulse Resp B/P Pulse Ox O2 Delivery O2 Flow Rate FiO2 11/07/16 14:11 98.2 69 20 105/58 98 Room Air 98.2 Labs: Labs: Laboratory Tests Test 11/07/16 04:10 White Blood Count 14.3x10^3/uL (4.0-11.0) Red Blood Count 5.19x10^6/uL (3.50-5.40) Hemoglobin 13.2g/dL (12.0-15.5) Hematocrit 40.5% (36.0-47.0) Mean Corpuscular Volume 78fL (79-100) Mean Corpuscular Hemoglobin 26pg (25-35) Mean Corpuscular Hemoglobin Concent 33g/dL (31-37) Red Cell Distribution Width 18.3% (11.5-14.5) Platelet Count 220x10^3/uL (140-400) Neutrophils (%) (Auto) 92% (31-73) Lymphocytes (%) (Auto) 4% (24-48) Monocytes (%) (Auto) 4% (0-9) Eosinophils (%) (Auto) 0% (0-3) Basophils (%) (Auto) 0% (0-3) Neutrophils # (Auto) 13.1x10^3uL (1.8-7.7) Lymphocytes # (Auto) 0.5x10^3/uL (1.0-4.8) Monocytes # (Auto) 0.6x10^3/uL (0.0-1.1) Eosinophils # (Auto) 0.0x10^3/uL (0.0-0.7) Basophils # (Auto) 0.0x10^3/uL (0.0-0.2) Sodium Level 142mmol/L (136-145) Potassium Level 3.5mmol/L (3.5-5.1) Chloride Level 107mmol/L (98-107) Carbon Dioxide Level 26mmol/L (21-32) Anion Gap 9 (6-14) Blood Urea Nitrogen 11mg/dL (7-20) Creatinine 0.7mg/dL (0.6-1.0) Estimated GFR (Cockcroft-Gault) 81.1 Glucose Level 97mg/dL (70-99) Calcium Level 7.7mg/dL (8.5-10.1) Magnesium Level 1.7mg/dL (1.8-2.4) Troponin I Quantitative < 0.017ng/mL (0.000-0.055) Allergies: Coded Allergies: No Known Drug Allergies (Unverified , 11/06/16) Medications: Current Medications Medications (Trade) Dose Ordered Sig/True Route PRN Reason Start Time Stop Time Status Last Admin Dose Admin Docusate Sodium (Colace) 100 mg BID PO 11/06/16 21:00 11/07/16 08:44 Enoxaparin Sodium 30 mg 30 mg Q24H SQ 11/06/16 21:00 11/06/16 22:22 Sodium Chloride (Iv Sodium Chloride 0.9% 1000ml Bag) 1,000 ml @ 125 mls/hr CONT PRN IV . 11/06/16 16:01 11/07/16 12:08 DC 11/07/16 07:01 Potassium Chloride (Klor-Con) 40 meq 1X ONCE PO 11/06/16 18:15 11/06/16 18:16 DC 11/06/16 18:31 Metoprolol Tartrate (Lopressor) 25 mg BID PO 11/06/16 21:00 11/07/16 08:44 Amlodipine Besylate (Norvasc) 10 mg DAILY PO 11/07/16 09:00 11/07/16 08:43 Cetirizine HCl (Zyrtec) 10 mg DAILY PO 11/07/16 09:00 11/07/16 09:32 Cyclosporine (Restasis) 1 drop BID OU 11/06/16 21:00 11/07/16 08:42 Latanoprost (Xalatan) 1 drop QHS OU 11/06/16 22:00 11/07/16 08:42 Morphine Sulfate (Ms Contin) 15 mg BID PO 11/06/16 22:00 11/07/16 09:32 Oxybutynin Chloride (Ditropan) 5 mg BID PO 11/06/16 22:00 11/07/16 08:42 Calcium Carbonate/ Glycine (Oscal) 500 mg DAILY PO 11/07/16 09:00 11/07/16 09:32 Pantoprazole Sodium (Protonix) 40 mg DAILYAC PO 11/07/16 07:30 11/07/16 08:43 Paroxetine HCl (Paxil) 40 mg DAILY PO 11/07/16 09:00 11/07/16 08:42 Potassium Chloride (Klor-Con) 20 meq TIDWMEALS PO 11/07/16 08:00 11/07/16 13:59 Vitamin B Complex 1 tab 1 tab DAILY PO 11/07/16 09:00 11/07/16 08:42 Magnesium Sulfate/ Dextrose (Magnesium Sulfate PREMIX 2GM) 50 ml @ 25 mls/hr 1X ONCE IV 11/07/16 12:00 11/07/16 13:59 DC 11/07/16 13:58 Imaging: Imaging: CXR Impression: 1. No acute cardiopulmonary process. Echocardiogram PENDING PE: GEN: NAD, thin, up to chair, RNs working on IV HEENT: Atraumatic, PERRL LUNGS: CTAB HEART: RRR ABD: NABS, S/ND/NT, no masses EXTREMITY: No edema SKIN: No rashes, no jaundice NEURO/PSYCH: A & O 3 A/P: A/P: Weakness, fall w/o LOC, abnormal EKG N/v -intermittent since 07/2016 -comes and goes every few days -better currently, improved w/ Phenergan -s/p cholecystectomy H/o PUD s/p vagotomy, partial gastrectomy -h/o bezoar on EGD within the past year -on PPI H/o Shultz's esophagus -reports treatment at [facility] Chronic epigastric pain CRC screen -reports normal colonoscopy within the last year -- Will review w/ Dr. Wilson. ?chronic n/v/pain w/ previous gastric surgery - currently better ENDY HINSON Nov 07, 2016 15:41
--- NOTE | 2016-11-07 16:17 | CARD ---
APPROVED REPORT EXAM: Two-dimensional and M-mode echocardiogram with Doppler and color Doppler. Other Information Quality : Average Rhythm : NSR INDICATION Abnormal ECG 2D DIMENSIONS Left Atrium(2D)3.4 (1.6-4.0cm)IVSd0.9 (0.7-1.1cm) Aortic Root(2D)3.2 (2.0-3.7cm)LVDd3.4 (3.9-5.9cm) LVOT Diameter2.0 (1.8-2.4cm)PWd0.8 (0.7-1.1cm) LVDs2.6 (2.5-4.0cm)FS (%) 26.3 % SV27.3 mlLVEF(%)52.3 (>50%) Aortic Valve AoV Peak Abebe.100.3cm/sAoV VTI20.2cm AO Peak GR.4.0mmHgLVOT VTI 20.86cm AO Mean GR.2mmHg Mitral Valve MV E Ehkekvay73.6cm/sMV E Peak Gr.7mmHg MV DECEL [id number] A Vbugmmts570.4cm/s MV E Mean Gr.2mmHgMV VQG23mn E/A Ratio0.8MV A [id number] MVA (PHT)2.62cm2 TDI Lateral E' P. V9.97cm/sMedial E' P. V8.98cm/s E/Lateral E'9.5E/Medial E'10.5 Tricuspid Valve TR P. Eyhvxyle699pc/sRAP [id number] TR Peak Gr.98crEbIQZF91thKn LEFT VENTRICLE The left ventricle is normal size. There is normal left ventricular wall thickness. Left ventricle sy stolic function is normal. The Ejection Fraction is 50-55%. There is normal LV segmental wall motion. Tissue Doppler imaging reveals mild left ventricular diastolic dysfunction. Transmitral Doppler flow pattern is Grade I-abnormal relaxation pattern. RIGHT VENTRICLE The right ventricle is normal size. The right ventricular systolic function is normal. ATRIA The left atrium size is normal. The right atrium size is normal. The interatrial septum is intact wit h no evidence for an atrial septal defect or patent foramen ovale as noted on 2-D or Doppler imaging. AORTIC VALVE The aortic valve is mildly to moderately sclerotic. The aortic valve is trileaflet. Doppler and Color Flow revealed no significant aortic regurgitation. There is no significant aortic valvular stenosis. MITRAL VALVE Mitral annular calcification is mild. There is no mitral valve stenosis. Doppler and Color Flow revea led no mitral valve regurgitation noted. TRICUSPID VALVE The tricuspid valve is normal in structure and function. Doppler and Color Flow revealed mild tricusp id regurgitation. The PA pressure was estimated at 30 mmHg. There is no tricuspid valve stenosis. PULMONIC VALVE The pulmonic valve is not well visualized. Doppler and Color Flow revealed no pulmonic valvular regur gitation. There is no pulmonic valvular stenosis. GREAT VESSELS The aortic root is normal in size. The IVC is normal in size and collapses <50% with inspiration. PERICARDIAL EFFUSION There is no evidence of significant pericardial effusion. Critical Notification Critical Value: No <Conclusion> Left ventricle systolic function is normal. The Ejection Fraction is 50-55%. There is normal LV segmental wall motion. The IVC is normal in size and collapses <50% with inspiration.
[2016-11-07] MEDS: ENOXAPARIN 30 MG/0.3 ML SYRINGE. SQ SCH (20:57)
[2016-11-07 23:07] LABS: OBC FLU VALID
[2016-11-08 03:05] VITALS: BP 139/76
[2016-11-08 06:26] LABS: BASO % 0 % (0-3); EOS % 3 % (0-3); HEMATOCRIT 39.6 % (36.0-47.0); HEMOGLOBIN 13.1 g/dL (12.0-15.5); LYMPH # 1.1 x10^3/uL (1.0-4.8); LYMPH % 14 % (24-48); MEAN CORPUSCULAR HEMOGLOBIN 25 pg (25-35); MEAN CORPUSCULAR HGB CONC 33 g/dL (31-37); MEAN CORPUSCULAR VOLUME 77 fL (79-100); MONO % 7 % (0-9); NEUT % 77 % (31-73); PLATELET COUNT 199 x10^3/uL (140-400); RED BLOOD COUNT 5.15 x10^6/uL (3.50-5.40); RED CELL DISTRIBUTION WIDTH 18.7 % (11.5-14.5); WHITE BLOOD COUNT 8.3 x10^3/uL (4.0-11.0)
[2016-11-08 06:49] LABS: CALCIUM 7.4 mg/dL (8.5-10.1); CREATININE 0.7 mg/dL (0.6-1.0); GFR 81.1; MAGNESIUM 1.8 mg/dL (1.8-2.4); POTASSIUM 3.6 mmol/L (3.5-5.1)
[2016-11-08 07:00] VITALS: BP 143/77
[2016-11-08] MEDS: PANTOPRAZOLE 40 MG TABLET.DR. PO SCH (08:35)
[2016-11-08] MEDS: VITAMIN B COMPLEX TABLET. PO SCH (08:35)
[2016-11-08] MEDS: POTASSIUM CHLORIDE 20 MEQ TABLET.ER. PO SCH ×3 (08:35→17:44)
[2016-11-08] MEDS: METOPROLOL TART IMMED RELEASE 25 MG TABLET. PO SCH ×2 (08:36→20:43)
[2016-11-08] MEDS: PAROXETINE 20 MG TABLET. PO SCH (08:36)
[2016-11-08] MEDS: OXYBUTYNIN CHLORIDE 5 MG TABLET PO SCH ×2 (08:37→20:44)
[2016-11-08] MEDS: MORPHINE ER 15 MG TABLET.ER PO SCH ×2 (08:37→20:45)
[2016-11-08] MEDS: CALCIUM CARBONATE 500 MG TABLET PO SCH (08:38)
[2016-11-08] MEDS: CETIRIZINE HCL 10 MG TABLET. PO SCH (08:38)
[2016-11-08] MEDS: CYCLOSPORINE 0.05% OPTH DROPERETTE. OU SCH ×2 (08:39→20:44)
[2016-11-08] MEDS: AMLODIPINE BESYLATE 10 MG TABLET. PO SCH (08:42)
[2016-11-08] MEDS: DOCUSATE SODIUM 100 MG CAPSULE. PO SCH ×2 (08:47→20:44)
[2016-11-08 11:00] VITALS: BP 120/65
--- NOTE | 2016-11-08 12:32 | PDOC ---
Subjective: Subjective: Feeling better but still fatigued. Eating some w/o n/v. Chronic epigastric discomfort unchanged. No BM in awhile. Objective: Objective: Seen earlier during downtime. Per RN - eating w/o n/v. Vital Signs: Vital Signs Date Time Temp Pulse Resp B/P Pulse Ox O2 Delivery O2 Flow Rate FiO2 11/08/16 08:42 70 143/77 11/08/16 08:37 16 Room Air 11/08/16 07:00 97.9 95 97.9 Labs: Laboratory Tests Test 11/07/16 21:10 11/08/16 03:50 Influenza Type A Antigen Negative Influenza Type B Antigen Negative White Blood Count 8.3x10^3/uL Red Blood Count 5.15x10^6/uL Hemoglobin 13.1g/dL Hematocrit 39.6% Mean Corpuscular Volume 77fL Mean Corpuscular Hemoglobin 25pg Mean Corpuscular Hemoglobin Concent 33g/dL Red Cell Distribution Width 18.7% Platelet Count 199x10^3/uL Neutrophils (%) (Auto) 77% Lymphocytes (%) (Auto) 14% Monocytes (%) (Auto) 7% Eosinophils (%) (Auto) 3% Basophils (%) (Auto) 0% Neutrophils # (Auto) 6.4x10^3uL Lymphocytes # (Auto) 1.1x10^3/uL Monocytes # (Auto) 0.6x10^3/uL Eosinophils # (Auto) 0.2x10^3/uL Basophils # (Auto) 0.0x10^3/uL Sodium Level 137mmol/L Potassium Level 3.6mmol/L Chloride Level 103mmol/L Carbon Dioxide Level 25mmol/L Anion Gap 9 Blood Urea Nitrogen 7mg/dL Creatinine 0.7mg/dL Estimated GFR (Cockcroft-Gault) 81.1 Glucose Level 84mg/dL Calcium Level 7.4mg/dL Magnesium Level 1.8mg/dL PE: GEN: NAD, up to chair LUNGS: decreased HEART: RRR ABD: S/ND/NT NEURO/PSYCH: A & O 3 A/P: Weakness N/v - resolved -h/o PUD s/p vagotomy, partial gastrectomy -h/o Shultz's esophagus -h/o bezoar -last EGD and colonoscopy within 1 year -s/p cholecystectomy -- Better today. Continue PPI. Will add Miralax PRN per her request. Consider UGI series if symptoms recur. ENDY HINSON Nov 08, 2016 12:32
[2016-11-08] MEDS ORDERED: POLYETHYLENE GLYCOL 3350 17 GM PACKET. PO PRN (12:45)
--- NOTE | 2016-11-08 12:52 | PDOC ---
PROGRESS NOTES Chief Complaint Chief Complaint 1. Nausea, emesis, dehydration- better, the latter resolved 2. Hemoconcentration sec to dehydration, resolved 3. Leukocytosis, likely reactive - resolved 4. smoker, hx COPD, HTN, depression per documentation 5. Hypokalemia, resolved 6. MOd to severe PCM 7. Hx rolle's, bezoars, chronic GERD 8. DIANA, vasomotor sec to above, resolved History of Present Illness History of Present Illness Numbers better She looks better Derrek has signed off -- was on board for ekg changes Pt can have intermittent nausea/dry heaving, needed some compazine earlier today PLAN: Ok to t.o CVC Cont meds Seems to be better NOted gI plan, UGI series if no better Current IVF to consume IF cont to do good freida, home freida Await PT recs Dw RN and pt Vitals Vitals Vital Signs Date Time Temp Pulse Resp B/P Pulse Ox O2 Delivery O2 Flow Rate FiO2 11/08/16 12:44 16 Room Air 11/08/16 11:00 97.8 64 120/65 98 97.8 Physical Exam General: Alert, Oriented X3, Cooperative, No acute distress Heart: Regular rate, Normal S1, Normal S2, Other (2/6 systolic murmur to LLS border) Abdomen: Soft (with diffuse mild tenderness with palpation) Extremities: No cyanosis, No edema Skin: No breakdown, No significant lesion Labs LABS Laboratory Tests Test 11/07/16 21:10 11/08/16 03:50 Influenza Type A Antigen Negative (NEGATIVE) Influenza Type B Antigen Negative (NEGATIVE) White Blood Count 8.3x10^3/uL (4.0-11.0) Red Blood Count 5.15x10^6/uL (3.50-5.40) Hemoglobin 13.1g/dL (12.0-15.5) Hematocrit 39.6% (36.0-47.0) Mean Corpuscular Volume 77fL (79-100) Mean Corpuscular Hemoglobin 25pg (25-35) Mean Corpuscular Hemoglobin Concent 33g/dL (31-37) Red Cell Distribution Width 18.7% (11.5-14.5) Platelet Count 199x10^3/uL (140-400) Neutrophils (%) (Auto) 77% (31-73) Lymphocytes (%) (Auto) 14% (24-48) Monocytes (%) (Auto) 7% (0-9) Eosinophils (%) (Auto) 3% (0-3) Basophils (%) (Auto) 0% (0-3) Neutrophils # (Auto) 6.4x10^3uL (1.8-7.7) Lymphocytes # (Auto) 1.1x10^3/uL (1.0-4.8) Monocytes # (Auto) 0.6x10^3/uL (0.0-1.1) Eosinophils # (Auto) 0.2x10^3/uL (0.0-0.7) Basophils # (Auto) 0.0x10^3/uL (0.0-0.2) Sodium Level 137mmol/L (136-145) Potassium Level 3.6mmol/L (3.5-5.1) Chloride Level 103mmol/L (98-107) Carbon Dioxide Level 25mmol/L (21-32) Anion Gap 9 (6-14) Blood Urea Nitrogen 7mg/dL (7-20) Creatinine 0.7mg/dL (0.6-1.0) Estimated GFR (Cockcroft-Gault) 81.1 Glucose Level 84mg/dL (70-99) Calcium Level 7.4mg/dL (8.5-10.1) Magnesium Level 1.8mg/dL (1.8-2.4) Review of Systems Review of Systems some nausea, no emesis, no CP< diarrhea, etc, all else is neg Assessment and Plan Assessmemt and Plan Problems Medical Problems: (1) Cough Status: Acute (2) Dehydration Status: Acute (3) Dysuria Status: Acute (4) Hypovolemia Status: Acute (5) Sinus tachycardia Status: Acute (6) ST segment changes on electrocardiography Status: Acute Problems: Comment Review of Relevant I have reviewed the following items roman (where applicable) has been applied. Labs Laboratory Tests Test 11/06/16 13:02 11/06/16 13:30 11/07/16 04:10 11/07/16 21:10 Urine Collection Type U cath Urine Color Yellow Urine Clarity Clear Urine pH 7.5 Urine Specific Soldier 1.020 Urine Protein 30mg/dL (NEG-TRACE) Urine Glucose (UA) Negativemg/dL (NEG) Urine Ketones (Stick) >=80mg/dL (NEG) Urine Blood Moderate (NEG) Urine Nitrite Negative (NEG) Urine Bilirubin Negative (NEG) Urine Urobilinogen Dipstick 1.0mg/dL (0.2 mg/dL) Urine Leukocyte Esterase Negative (NEG) Urine RBC 11-20/HPF (0-2) Urine WBC 1-4/HPF (0-4) Urine Squamous Epithelial Cells Few/LPF Urine Bacteria Moderate/HPF (0-FEW) Urine Hyaline Casts Occasional/HPF Urine Mucus Slight/LPF Sodium Level 139mmol/L (136-145) 142mmol/L (136-145) Potassium Level 2.9mmol/L (3.5-5.1) 3.5mmol/L (3.5-5.1) Chloride Level 97mmol/L (98-107) 107mmol/L (98-107) Carbon Dioxide Level 29mmol/L (21-32) 26mmol/L (21-32) Anion Gap 13 (6-14) 9 (6-14) Blood Urea Nitrogen 20mg/dL (7-20) 11mg/dL (7-20) Creatinine 0.9mg/dL (0.6-1.0) 0.7mg/dL (0.6-1.0) Estimated GFR (Cockcroft-Gault) 60.7 81.1 Glucose Level 140mg/dL (70-99) 97mg/dL (70-99) Calcium Level 9.2mg/dL (8.5-10.1) 7.7mg/dL (8.5-10.1) Total Bilirubin 0.8mg/dL (0.2-1.0) Direct Bilirubin 0.2mg/dL (0.0-0.2) Aspartate Amino Transf (AST/SGOT) 20U/L (15-37) Alanine Aminotransferase (ALT/SGPT) 23U/L (14-59) Alkaline Phosphatase 102U/L (46-116) BN-Kqd-U-Type Natriuretic Peptide 738pg/mL (0-449) Total Protein 6.8g/dL (6.4-8.2) Albumin 3.7g/dL (3.4-5.0) Lipase 257U/L (73-393) White Blood Count 14.3x10^3/uL (4.0-11.0) Red Blood Count 5.19x10^6/uL (3.50-5.40) Hemoglobin 13.2g/dL (12.0-15.5) Hematocrit 40.5% (36.0-47.0) Mean Corpuscular Volume 78fL (79-100) Mean Corpuscular Hemoglobin 26pg (25-35) Mean Corpuscular Hemoglobin Concent 33g/dL (31-37) Red Cell Distribution Width 18.3% (11.5-14.5) Platelet Count 220x10^3/uL (140-400) Neutrophils (%) (Auto) 92% (31-73) Lymphocytes (%) (Auto) 4% (24-48) Monocytes (%) (Auto) 4% (0-9) Eosinophils (%) (Auto) 0% (0-3) Basophils (%) (Auto) 0% (0-3) Neutrophils # (Auto) 13.1x10^3uL (1.8-7.7) Lymphocytes # (Auto) 0.5x10^3/uL (1.0-4.8) Monocytes # (Auto) 0.6x10^3/uL (0.0-1.1) Eosinophils # (Auto) 0.0x10^3/uL (0.0-0.7) Basophils # (Auto) 0.0x10^3/uL (0.0-0.2) Magnesium Level 1.7mg/dL (1.8-2.4) Troponin I Quantitative < 0.017ng/mL (0.000-0.055) Influenza Type A Antigen Negative (NEGATIVE) Influenza Type B Antigen Negative (NEGATIVE) Test 11/08/16 03:50 White Blood Count 8.3x10^3/uL (4.0-11.0) Red Blood Count 5.15x10^6/uL (3.50-5.40) Hemoglobin 13.1g/dL (12.0-15.5) Hematocrit 39.6% (36.0-47.0) Mean Corpuscular Volume 77fL (79-100) Mean Corpuscular Hemoglobin 25pg (25-35) Mean Corpuscular Hemoglobin Concent 33g/dL (31-37) Red Cell Distribution Width 18.7% (11.5-14.5) Platelet Count 199x10^3/uL (140-400) Neutrophils (%) (Auto) 77% (31-73) Lymphocytes (%) (Auto) 14% (24-48) Monocytes (%) (Auto) 7% (0-9) Eosinophils (%) (Auto) 3% (0-3) Basophils (%) (Auto) 0% (0-3) Neutrophils # (Auto) 6.4x10^3uL (1.8-7.7) Lymphocytes # (Auto) 1.1x10^3/uL (1.0-4.8) Monocytes # (Auto) 0.6x10^3/uL (0.0-1.1) Eosinophils # (Auto) 0.2x10^3/uL (0.0-0.7) Basophils # (Auto) 0.0x10^3/uL (0.0-0.2) Sodium Level 137mmol/L (136-145) Potassium Level 3.6mmol/L (3.5-5.1) Chloride Level 103mmol/L (98-107) Carbon Dioxide Level 25mmol/L (21-32) Anion Gap 9 (6-14) Blood Urea Nitrogen 7mg/dL (7-20) Creatinine 0.7mg/dL (0.6-1.0) Estimated GFR (Cockcroft-Gault) 81.1 Glucose Level 84mg/dL (70-99) Calcium Level 7.4mg/dL (8.5-10.1) Magnesium Level 1.8mg/dL (1.8-2.4) Laboratory Tests Test 11/07/16 21:10 11/08/16 03:50 Influenza Type A Antigen Negative (NEGATIVE) Influenza Type B Antigen Negative (NEGATIVE) White Blood Count 8.3x10^3/uL (4.0-11.0) Red Blood Count 5.15x10^6/uL (3.50-5.40) Hemoglobin 13.1g/dL (12.0-15.5) Hematocrit 39.6% (36.0-47.0) Mean Corpuscular Volume 77fL (79-100) Mean Corpuscular Hemoglobin 25pg (25-35) Mean Corpuscular Hemoglobin Concent 33g/dL (31-37) Red Cell Distribution Width 18.7% (11.5-14.5) Platelet Count 199x10^3/uL (140-400) Neutrophils (%) (Auto) 77% (31-73) Lymphocytes (%) (Auto) 14% (24-48) Monocytes (%) (Auto) 7% (0-9) Eosinophils (%) (Auto) 3% (0-3) Basophils (%) (Auto) 0% (0-3) Neutrophils # (Auto) 6.4x10^3uL (1.8-7.7) Lymphocytes # (Auto) 1.1x10^3/uL (1.0-4.8) Monocytes # (Auto) 0.6x10^3/uL (0.0-1.1) Eosinophils # (Auto) 0.2x10^3/uL (0.0-0.7) Basophils # (Auto) 0.0x10^3/uL (0.0-0.2) Sodium Level 137mmol/L (136-145) Potassium Level 3.6mmol/L (3.5-5.1) Chloride Level 103mmol/L (98-107) Carbon Dioxide Level 25mmol/L (21-32) Anion Gap 9 (6-14) Blood Urea Nitrogen 7mg/dL (7-20) Creatinine 0.7mg/dL (0.6-1.0) Estimated GFR (Cockcroft-Gault) 81.1 Glucose Level 84mg/dL (70-99) Calcium Level 7.4mg/dL (8.5-10.1) Magnesium Level 1.8mg/dL (1.8-2.4) Microbiology 11/06/16 Urine Culture - Preliminary, Resulted 11/06/16 Urine Culture Result 1 (MARILIN) - Preliminary, Resulted Medications Current Medications Ondansetron HCl (Zofran) 4 mg PRN Q30MIN PRN IV NAUSEA/VOMITING Last administered on 11/06/16 13:35; Start 11/06/16 at 12:45; Stop 11/07/16 at 14:51; Status DC Fentanyl Citrate 25 mcg 25 mcg PRN Q30MIN PRN IV PAIN Last administered on 13:35; Start 11/06/16 at 12:45 Sodium Chloride (Iv Sodium Chloride 0.9% 500ml Bag) 500 ml @ 500 mls/hr 1X ONCE IV Last administered on 11/06/16 13:53; Start 11/06/16 at 14:15; Stop at 15:14; Status DC Potassium Chloride 40 meq 40 meq 1X ONCE PO Last administered on 11/06/16 18: 31; Start 11/06/16 at 14:15; Stop 11/06/16 at 14:16; Status DC Ceftriaxone Sodium (Rocephin 1gm Ivpb For Omni) 50 ml @ 100 mls/hr 1X ONCE IV Last administered on 11/06/16 14:45; Start 11/06/16 at 14:45; Stop 11/06/16 at 15:14; Status DC Ondansetron HCl (Zofran) 4 mg PRN Q6HRS PRN IV NAUSEA/VOMITING, 1ST CHOICE IV; Start 11/06/16 at 14:30 Prochlorperazine Edisylate (Compazine) 10 mg PRN Q6HRS PRN IV NAUSEA/VOMITING, 2ND CHOICE IV Last administered on 11/07/16 09:32; Start 11/06/16 at 14:30 Prochlorperazine (Compazine) 25 mg PRN Q12HR PRN ID NAUSEA/VOMITING; Start 11/06 at 14:30 Al Hydroxide/Mg Hydroxide (Mylanta Plus Xs) 30 ml PRN Q3HRS PRN PO HEARTBURN / GAS; Start 11/06/16 at 14:30 Calcium Carbonate/ Glycine (Tums) 500 mg PRN Q3HRS PRN PO UPSET STOMACH; Start 11/06/16 at 14:30 Oxycodone HCl (Roxicodone) 5 mg PRN Q3HRS PRN PO BREAKTHROUGH PAIN; Start at 14:30 Morphine Sulfate 1 mg PRN Q2HR PRN IV PAIN; Start 11/06/16 at 14:30 Ketorolac Tromethamine (Toradol) 15 mg PRN Q6HRS PRN IV PAIN; Start 11/06/16 at 14:30; Stop 11/11/16 at 14:29 Docusate Sodium (Colace) 100 mg BID PO Last administered on 11/08/16 08:47; Start 11/06/16 at 21:00 Magnesium Hydroxide (Milk Of Magnesia) 2,400 mg PRN Q12HR PRN PO CONSTIPATION; Start 11/06/16 at 14:30 Bisacodyl (Dulcolax Supp) 10 mg PRN DAILY PRN ID CONSTIPATION; Start 11/06/16 at 14:30 Enoxaparin Sodium (Lovenox 30mg Syringe) 30 mg Q24H SQ Last administered on 11/07 20:57; Start 11/06/16 at 21:00 Acetaminophen 500 mg 500 mg PRN Q6HRS PRN PO pain Last administered on 15:11; Start 11/06/16 at 14:30 Sodium Chloride (Iv Sodium Chloride 0.9% 1000ml Bag) 1,000 ml @ 125 mls/hr CONT IV Last administered on 11/06/16 15:56; Start 11/06/16 at 14:30; Stop at 16:01; Status DC Nicotine 1 patch 1 patch PRN DAILY PRN TD SMOKING CESSATION; Start 11/06/16 at 14:30 Sodium Chloride (Iv Sodium Chloride 0.9% 1000ml Bag) 1,000 ml @ 125 mls/hr CONT PRN IV . Last administered on 11/07/16 07:01; Start 11/06/16 at 16:01; Stop 11/07/16 at 12:08; Status DC Potassium Chloride (Klor-Con) 40 meq 1X ONCE PO Last administered on 11/06/16 18:31; Start 11/06/16 at 18:15; Stop 11/06/16 at 18:16; Status DC Labetalol HCl (Normodyne) 10 mg PRN Q2HR PRN IVP HYPERTENSION, SEE COMMENTS; Start 11/06/16 at 20:00 Metoprolol Tartrate (Lopressor) 25 mg BID PO Last administered on 11/08/16 08: 36; Start 11/06/16 at 21:00 Amlodipine Besylate (Norvasc) 10 mg DAILY PO Last administered on 11/08/16 08: 42; Start 11/07/16 at 09:00 Cetirizine HCl (Zyrtec) 10 mg DAILY PO Last administered on 11/08/16 08:38; Start 11/07/16 at 09:00 Cyclosporine (Restasis) 1 drop BID OU Last administered on 11/08/16 08:39; Start 11/06/16 at 21:00 Acetaminophen/ Hydrocodone Bitart (Lortab 5/325) 1 tab PRN Q6HRS PRN PO PAIN; Start 11/06/16 at 21:00 Latanoprost (Xalatan) 1 drop QHS OU Last administered on 11/07/16 08:42; Start 11/06/16 at 22:00 Morphine Sulfate (Ms Contin) 15 mg BID PO Last administered on 11/08/16 08:37; Start 11/06/16 at 22:00 Oxybutynin Chloride (Ditropan) 5 mg BID PO Last administered on 11/08/16 08:37 ; Start 11/06/16 at 22:00 Calcium Carbonate/ Glycine (Oscal) 500 mg DAILY PO Last administered on 08:38; Start 11/07/16 at 09:00 Pantoprazole Sodium (Protonix) 40 mg DAILYAC PO Last administered on 11/08/16 08:35; Start 11/07/16 at 07:30 Ondansetron HCl (Zofran Odt) 4 mg PRN Q8HRS PRN PO NAUSEA/VOMITING, 1ST CHOICE PO; Start 11/06/16 at 21:15 Paroxetine HCl (Paxil) 40 mg DAILY PO Last administered on 11/08/16 08:36; Start 11/07/16 at 09:00 Potassium Chloride (Klor-Con) 20 meq TIDWMEALS PO Last administered on 12:40; Start 11/07/16 at 08:00 Vitamin B Complex (Isidro B) 1 tab DAILY PO Last administered on 11/08/16 08:35; Start 11/07/16 at 09:00 Trazodone HCl 50 mg 50 mg PRN QHS PRN PO INSOMNIA; Start 11/06/16 at 22:15 Ciprofloxacin Lactate 200 ml @ 200 mls/hr Q24H IV ; Start 11/07/16 at 13:00; Stop 11/07/16 at 13:00; Status DC Metronidazole (FLAGYL 500Mmg PREMIX) 100 ml @ 100 mls/hr Q12HR IV ; Start at 12:00; Stop 11/07/16 at 12:00; Status DC Loperamide HCl 2 mg 2 mg PRN Q15MIN PRN PO DIARRHEA; Start 11/07/16 at 11:45 Magnesium Sulfate/ Dextrose 50 ml @ 25 mls/hr 1X ONCE IV Last administered on 11/07/16t 13:58; Start 11/07/16 at 12:00; Stop 11/07/16 at 13:59; Status DC Promethazine HCl/ Sodium Chloride (Phenergan/Iv Sodium Chloride 0.9% 50ml) 50.25 ml @ 150.75 mls/ hr PRN Q6HRS PRN IV NAUSEA/VOMITING, 3RD CHOICE IV; Start 11/07/16 at 12:00 Promethazine HCl 12.5 mg 12.5 mg PRN Q6HRS PRN PO NAUSEA/VOMITING, 2ND CHOICE PO; Start 11/07/16 at 12:00 Sodium Chloride (Iv Sodium Chloride 0.9% 1000ml Bag) 1,000 ml @ 100 mls/hr Q10HR IV ; Start 11/07/16 at 12:06 Polyethylene Glycol (miraLAX PACKET) 17 gm PRN DAILY PRN PO CONSTIPATION; Start 11/08/16 at 12:45 Active Scripts Active Reported Super B Complex (Vitamin B Complex & Vit C No.4) 150 Mg Tablet 150 Mg PO DAILY Zofran (Ondansetron Hcl) 4 Mg Tablet 1 Tab PO PRN Q6-8HRS Latanoprost 2.5 Ml Drops 1 Drop EACHEYE QHS Restasis (Cyclosporine) 1 Each Droperette 1 Drop EACHEYE BID Omeprazole 10 Mg Capsule.dr 10 Mg PO HS Omeprazole 10 Mg Capsule.dr 10 Mg PO DAILY Zyrtec (Cetirizine Hcl) 10 Mg Tablet 1 Tab PO DAILY Trazodone Hcl 100 Mg Tablet 1 Tab PO QHS Paroxetine Hcl 40 Mg Tablet 1 Tab PO DAILY Calcium Citrate 200 Mg Tablet 600 Mg PO DAILY Hydrocodone-Apap 5-325 (Hydrocodone Bit/Acetaminophen) 1 Each Tablet 1 Tab PO PRN Q6HRS PRN Morphine Sulfate Er (Morphine Sulfate) 15 Mg Tablet.er 1 Tab PO BID Potassium Chloride 10 Meq Capsule.er 20 Meq PO TID Oxybutynin Chloride 5 Mg Tablet 2 Tab PO BID Amlodipine Besylate 10 Mg Tablet 10 Mg PO DAILY Metoprolol Tartrate 25 Mg Tablet 1 Tab PO BID Vitals/I & O Vital Sign - Last 24 Hours 11/07/16 11/07/16 11/07/16 11/07/16 14:11 19:30 20:00 20:56 Temp 98.2 98.2 98.2 98.2 Pulse 69 66 66 Resp 20 18 B/P 105/58 110/61 110/61 Pulse Ox 98 94 O2 Delivery Room Air Room Air Room Air 11/07/16 11/07/16 11/08/16 11/08/16 20:56 23:00 00:56 03:05 Temp 97.7 97.8 97.7 97.8 Pulse 60 64 Resp 18 B/P 110/63 139/76 Pulse Ox 94 94 94 95 O2 Delivery Room Air Room Air Room Air 11/08/16 11/08/16 11/08/16 11/08/16 07:00 08:00 08:36 08:37 Temp 97.9 97.9 Pulse 65 70 Resp 18 16 B/P 143/77 143/77 Pulse Ox 95 O2 Delivery Room Air Room Air Room Air 11/08/16 11/08/16 11/08/16 08:42 11:00 12:44 Temp 97.8 97.8 Pulse 70 64 Resp 18 16 B/P 143/77 120/65 Pulse Ox 98 O2 Delivery Room Air Room Air Intake and Output 11/07/16 11/07/16 11/08/16 14:59 22:59 06:59 Intake Total 240 ml 340 ml Output Total 1100 ml 1400 ml Balance -860 ml -1060 ml GEORGETTE POON MD Nov 08, 2016 12:52
[2016-11-08 15:00] VITALS: BP 108/60
[2016-11-08] MEDS: MORPHINE SULFATE 2 MG/ML DISP.SYRIN. IV PRN (16:06)
[2016-11-08 19:00] VITALS: BP 118/61
[2016-11-08] MEDS: LATANOPROST 0.005% OPHTH SOLUTION 2.5ML BOTTLE. OU SCH (20:44)
[2016-11-08] MEDS: ENOXAPARIN 30 MG/0.3 ML SYRINGE. SQ SCH (20:44)
[2016-11-08 23:00] VITALS: BP 136/69
[2016-11-09 03:00] VITALS: BP 147/80
[2016-11-09] MEDS: PANTOPRAZOLE 40 MG TABLET.DR. PO SCH (06:20)
[2016-11-09 07:20] VITALS: BP 153/86
[2016-11-09] MEDS: VITAMIN B COMPLEX TABLET. PO SCH (08:08)
[2016-11-09] MEDS: CALCIUM CARBONATE 500 MG TABLET PO SCH (08:08)
[2016-11-09] MEDS: CETIRIZINE HCL 10 MG TABLET. PO SCH (08:08)
[2016-11-09] MEDS: MORPHINE ER 15 MG TABLET.ER PO SCH (08:08)
[2016-11-09] MEDS: POTASSIUM CHLORIDE 20 MEQ TABLET.ER. PO SCH ×2 (08:08→12:52)
[2016-11-09] MEDS: OXYBUTYNIN CHLORIDE 5 MG TABLET PO SCH (08:08)
[2016-11-09] MEDS: DOCUSATE SODIUM 100 MG CAPSULE. PO SCH (08:08)
[2016-11-09] MEDS: PAROXETINE 20 MG TABLET. PO SCH (08:08)
[2016-11-09] MEDS: AMLODIPINE BESYLATE 10 MG TABLET. PO SCH (08:09)
[2016-11-09] MEDS: CYCLOSPORINE 0.05% OPTH DROPERETTE. OU SCH (08:09)
[2016-11-09] MEDS: METOPROLOL TART IMMED RELEASE 25 MG TABLET. PO SCH (08:09)
[2016-11-09 11:00] VITALS: BP 134/71
--- NOTE | 2016-11-09 11:19 | PDOC ---
Subjective: Subjective: Feeling better, more energy, eating w/o issue. Objective: Objective: Per RN - no GI concerns, plans to DC today. Vital Signs: Vital Signs Date Time Temp Pulse Resp B/P Pulse Ox O2 Delivery O2 Flow Rate FiO2 11/09/16 11:00 98.1 60 18 134/71 97 Room Air 98.1 PE: GEN: NAD, up to chair LUNGS: clear anteriorly HEART: RRR ABD: S/ND/NT NEURO/PSYCH: A & O 3 A/P: N/v - resolved -h/o PUD s/p vagotomy, partial gastrectomy -h/o Shultz's esophagus -h/o bezoar -last EGD and colonoscopy within 1 year -s/p cholecystectomy -- Improved. Continue PPI QD, Miralax PRN. DC per primary. Follow-up w/ GI PRN. ENDY HINSON Nov 09, 2016 11:19
--- NOTE | 2016-11-09 11:54 | PDOC3 ---
Discharge Summary [facility] Date of Admission: Nov 06, 2016 Discharge Date: Nov 09, 2016 Admitting Diagnosis 1. Nausea, emesis, abd pain, 2/2 gastritis likely 2. Hemoconcentration sec to dehydration, resolved 3. Leukocytosis, likely reactive 4. smoker, hx COPD, HTN, depression per documentation 5. Hypokalemia, 6. MOd to severe PCM 7. Hx rolle's, bezoars, chronic GERD 8. ckd2, hypomagnesemia 9. recent hip fx post sx Problems: Final Diagnosis CONSULTS gi Brief Hospital Course Ms. Fowler is a 76 old F, comes for N/V,abd pain. She was found dehydration, hypokalemia, hypomagnesemia. Pt improved with ivf, tolerate food well, no N/V, no diarrhea. dc home dc time 35min General: Alert, Oriented X3, Cooperative, No acute distress Heart: Regular rate, Normal S1, Normal S2, Other (2/6 systolic murmur to LLS border) Abdomen: Soft (with diffuse mild tenderness with palpation) Extremities: No cyanosis, No edema Skin: No breakdown, No significant lesion Problems: Disposition home CONDITION AT DISCHARGE: Improved Diet regular Scheduled Amlodipine Besylate (Amlodipine Besylate) 10 MG PO DAILY (Reported) Calcium Citrate (Calcium Citrate) 600 MG PO DAILY (Reported) Cetirizine Hcl (Zyrtec) 1 TAB PO DAILY (Reported) Cyclosporine (Restasis) 1 DROP EACHEYE BID (Reported) Latanoprost (Latanoprost) 1 DROP EACHEYE QHS (Reported) Metoprolol Tartrate (Metoprolol Tartrate) 1 TAB PO BID (Reported) Morphine Sulfate (Morphine Sulfate Er) 1 TAB PO BID (Reported) Omeprazole (Omeprazole) 10 MG PO DAILY (Reported) Omeprazole (Omeprazole) 10 MG PO HS (Reported) Ondansetron Hcl (Zofran) 1 TAB PO PRN Q6-8HRS (Reported) Oxybutynin Chloride (Oxybutynin Chloride) 2 TAB PO BID (Reported) Paroxetine Hcl (Paroxetine Hcl) 1 TAB PO DAILY (Reported) Potassium Chloride (Potassium Chloride) 20 MEQ PO TID (Reported) Trazodone Hcl (Trazodone Hcl) 1 TAB PO QHS (Reported) Vitamin B Complex & Vit C No.4 (Super B Complex) 150 MG PO DAILY (Reported) Scheduled PRN Hydrocodone Bit/Acetaminophen (Hydrocodone-Apap 5-325 ) 1 TAB PO PRN Q6HRS PRN PRN PAIN (Reported) Follow Up pcp in 2 weeks LIZET BARCLAY MD Nov 09, 2016 11:54
[2016-11-09 16:39] VITALS: BP 135/62
== END 2016-11-09 17:10 | disposition home or self-care (01) | DRG 682 ==
LOC: ER 12:24 → ED HOLD 13:48 → 2 NORTH 17:13 → 6 SOUTH 11-08 15:24
PROVIDERS: ADMIT Internal Medicine; ATTEND Internal Medicine
DX: N17.0 Acute kidney failure with tubular necrosis (principal); E43 Unspecified severe protein-calorie malnutrition; Z68.1 Body mass index [BMI] 19.9 or less, adult; E11.22 Type 2 diabetes mellitus with diabetic chronic kidney disease; E83.42 Hypomagnesemia; E86.0 Dehydration; E86.1 Hypovolemia; E87.6 Hypokalemia; F17.200 Nicotine dependence, unspecified, uncomplicated; F32.9 Major depressive disorder, single episode, unspecified; F41.9 Anxiety disorder, unspecified; G89.29 Other chronic pain; H40.9 Unspecified glaucoma; I12.9 Hypertensive chronic kidney disease with stage 1 through stage 4 chronic kidney disease, or unspecified chronic kidney disease; I25.10 Atherosclerotic heart disease of native coronary artery without angina pectoris; J44.9 Chronic obstructive pulmonary disease, unspecified; K21.9 Gastro-esophageal reflux disease without esophagitis; K22.70 Barrett's esophagus without dysplasia; K29.70 Gastritis, unspecified, without bleeding; K52.9 Noninfective gastroenteritis and colitis, unspecified; N18.2 Chronic kidney disease, stage 2 (mild); W19.XXXA Unspecified fall, initial encounter; Z96.649 Presence of unspecified artificial hip joint; Z96.659 Presence of unspecified artificial knee joint; M19.90 Unspecified osteoarthritis, unspecified site; Z90.49 Acquired absence of other specified parts of digestive tract; Z90.3 Acquired absence of stomach [part of]; Z87.11 Personal history of peptic ulcer disease; Z82.49 Family history of ischemic heart disease and other diseases of the circulatory system; Y92.009 Unspecified place in unspecified non-institutional (private) residence as the place of occurrence of the external cause
CPT/HCPCS: 36415; 51701; 71010; 80048; 80076; 81001; 83605; 83690; 83735; 83880; 84484; 85007; 85027; 87086; 87804; 93005; 93306; 96361; 96374; 96375; G0379; J0690; J0780; J1650; J2270; J2405; J3010; J7030; J7040; J7060; 97110; 97116; 97530; 97535; 99285-25